=== PATIENT | female | born 1990 | race Caucasian/White ===

== ENCOUNTER → 2018-07-09 16:45 | Outpatient (CLI) | payer BC, SELFPAY ==
[2018-07-09 14:56] VITALS: BMI 29.6
[2018-07-10 12:55] LABS: Chlamydia Trachomatis by PCR Negative (Negative); Neisserai gonorrhoeae by PCR Negative (Negative); Probe Check PASS; Sample Adequacy Control PASS; Specimen Processing Control PASS
[2018-07-16 09:14] LABS: HPV APTIMA, High Risk Negative (Negative)
== END ==
PROVIDERS: Referring Provider Nurse Practitioner Women's Health; Visit Provider Nurse Practitioner Women's Health
DX: Z11.3 Encounter for screening for infections with a predominantly sexual mode of transmission (principal)
CPT/HCPCS: 87491; 87591; 87624; 88175; G0145

== ENCOUNTER → 2019-03-12 15:12 | Outpatient (CLI) | payer OTHER, SELFPAY ==
[2019-03-12 11:11] VITALS: BMI 29.6
== END ==
PROVIDERS: Referring Provider Nurse Practitioner Women's Health; Visit Provider Nurse Practitioner Women's Health
DX: N89.8 Other specified noninflammatory disorders of vagina (principal)
CPT/HCPCS: 87070; 87205

== ENCOUNTER → 2019-04-06 12:42 | Outpatient (CLI) | payer OTHER, SELFPAY ==
[2019-03-12 11:11] VITALS: BMI 29.6
--- NOTE | 2019-04-06 12:46 | US_ITS ---
STUDY: FIRST TRIMESTER OBSTETRICAL ULTRASOUND REASON FOR EXAM: Female, 29 years old VIABILITY LMP: February 05, 2019. TECHNIQUE: Transvaginal TECHNICAL QUALITY: Adequate. PRIOR ULTRASOUND: None. FINDINGS: There is visualization of a single gestational sac in a normal intrauterine position. The mean sac diameter (MSD) measures 2.2 cm, indicating an estimated gestational age (EGA) of 7 weeks, 2 days. The gestational sac shape is within normal limits. There is a visualized yolk sac. The yolk sac measures 4 mm. The placenta is non-visualized. There is visualization of a live embryo. The crown-rump length (CRL) measures 1.9 cm, indicating an estimated gestational age (EGA) of 8 weeks, 4 days. There is demonstrated cardiac activity with a heart rate of 167 bpm. The estimated gestation age (EGA) by LMP is 8 weeks, 4 days. The estimated date of delivery (MIKA) by LMP is November 12, 2019. The estimated gestation age (EGA) by US is 8 weeks, 0 days. The estimated date of delivery (MIKA) by US is November 16, 2019. The uterus is retroverted and measures 8.9 cm x 6.6 cm by 5.5 cm. There is no demonstrated uterine fibroid. The cervix is closed. The right ovary measures 3 cm x 2.6 cm by 1.9 cm. There is no right ovarian cyst. There is no visualized right adnexal mass or complex lesion. The left ovary measures 2.3 cm x 1.6 cm x 1 cm. There is no left ovarian cyst. There is no visualized left adnexal mass or complex lesion. There is no fluid in the cul de sac. US/Transvaginal w/Preg US IMPRESSION: Single live intrauterine gestation with a mean gestational age of 8 weeks. Electronically Signed: Edmar Frausto, at 13:50 EST , Service support ,
== END ==
PROVIDERS: PCP Nurse Practitioner Family; Referring Provider Obstetrics & Gynecology; Visit Provider Obstetrics & Gynecology
DX: O20.0 Threatened abortion (principal); Z3A.00 Weeks of gestation of pregnancy not specified
CPT/HCPCS: 76817

== ENCOUNTER → 2019-04-16 16:15 | Outpatient (CLI) | payer OTHER, SELFPAY ==
[2019-04-16 10:20] VITALS: BMI 29.6
[2019-04-16 16:52] LABS: Protein, Urine (Random) < 6.0 mg/dL (<11.9); Protein:Creat Ratio 118 mg/g CRE (0-200)
[2019-04-16 17:07] LABS: Amphetamine Urine VISTA NEGATIVE (<1000 ng/mL); Barbiturate Urine VISTA NEGATIVE (< 200 ng/mL); Benzodiazepine Urine VISTA NEGATIVE (< 200 ng/mL); Cocaine Urine VISTA NEGATIVE (< 300 ng/mL); Ecstacy Urine VISTA NEGATIVE (< 500 ng/mL); Methadone Urine VISTA NEGATIVE (< 300 ng/mL); PCP Urine VISTA NEGATIVE (< 25 ng/mL); THC Urine VISTA NEGATIVE (< 50 ng/mL); Vista UDS pH Range 5
[2019-04-16 19:42] LABS: Chlamydia Trachomatis by PCR Negative (Negative); Neisserai gonorrhoeae by PCR Negative (Negative); Probe Check PASS; Sample Adequacy Control PASS; Specimen Processing Control PASS
[2019-04-22 13:35] LABS: HPV APTIMA, High Risk Negative (Negative)
== END ==
PROVIDERS: PCP Nurse Practitioner Family; Referring Provider Obstetrics & Gynecology; Visit Provider Obstetrics & Gynecology
DX: Z12.4 Encounter for screening for malignant neoplasm of cervix (principal); Z34.80 Encounter for supervision of other normal pregnancy, unspecified trimester; O09.299 Supervision of pregnancy with other poor reproductive or obstetric history, unspecified trimester; Z3A.00 Weeks of gestation of pregnancy not specified
CPT/HCPCS: 80307; 82570; 84156; 87086; 87088; 87186; 87491; 87591; 87624; 88175; G0145

== ENCOUNTER 2019-04-19 09:18 | Emergency (ER) | payer OTHER, SELFPAY ==
[2019-04-16 10:20] VITALS: BMI 29.6
[2019-04-19 09:19] VITALS: BP 144/84; PULSE 69; RESP 17; TEMP 37.3; O2SAT 100; BMI 33.4
--- NOTE | 2019-04-19 09:30 | US_ITS ---
STUDY: FIRST TRIMESTER OBSTETRICAL ULTRASOUND REASON FOR EXAM: Female, 29 years old BLEEDING LMP: 02/04/2019 TECHNIQUE: Transvaginal TECHNICAL QUALITY: Adequate. PRIOR ULTRASOUND: None. FINDINGS: There is visualization of a single gestational sac in a normal intrauterine position. The mean sac diameter (MSD) measures 3.4 x 4 x 1.6 cm, indicating an estimated gestational age (EGA) of 8 weeks, 2 days. The gestational sac shape is within normal limits. There is no demonstrated yolk sac. The placenta is non-visualized. There is visualization of a live embryo. The crown-rump length (CRL) measures 3.1 cm, indicating an estimated gestational age (EGA) of 10 weeks, 1 days. There is demonstrated cardiac activity with a heart rate of 160 bpm. The estimated gestation age (EGA) by LMP is 10 weeks, 4 days. The estimated date of delivery (MIKA) by LMP is 11/12/2019. The estimated gestation age (EGA) by US is 9 weeks, 2 days. The estimated date of delivery (MIKA) by US is 11/20/2019. The uterus measures 9.1 x 6.6 x 5.9 cm. Fibroid measuring 3.6 x 3.9 x 2.8 cm. The cervix is closed. The right ovary measures 3.2 x 2.5 x 2.0 cm. There is no right ovarian cyst. There is no visualized right adnexal mass or complex lesion. The left ovary measures 3.4 x 1.6 x 1.7 cm. There is no left ovarian cyst. There is no visualized left adnexal mass or complex lesion. There is no fluid in the cul de sac. US/Transvaginal w/Preg US IMPRESSION: Single live early IUP as above. No evidence of complications. Electronically Signed: Chino Rothman DO at 11:26 EST Tel , Service support ,
--- NOTE | 2019-04-19 09:31 | ED.VIS.GEN ---
History of Present Illness Chief Complaint: Vag Bld, Preg Informant: Patient Onset: Today Current Severity: Mild Maximum Severity: Moderate Narrative: Patient presents with vaginal bleeding and mild cramping. She is approximately 10 weeks . She states that 2 to 3 weeks ago she had 11 days of spotting but that had seemed to resolve. Bleeding today is heavier than what she had previously experienced. She is passing some small clots. She is currently G3, P1, Ab1. Past Medical History - Allergies and Home Meds Allergies/Adverse Reactions: Allergies amoxicillin Allergy (Unknown, Verified 04/19/19 09:19) Unknown blueberry Adverse Reaction (Intermediate, Verified 04/19/19 09:19) nauseau/vomiting/diahrea Primary Care Physician: Marshal Munguia, RADIOGRAPHER MAMMOGRAPHER-C [Primary Care Provider] - Doctors: Dr. Roe Prior records reviewed: Yes Past Medical History: None Lives: With Family Smoking Status: Light Smoker (<10/day) Review of Systems General: Denies: Chills, Fever Eyes: Denies: Visual changes - bilaterally ENT: Denies: Bilateral ear pain Cardiovascular: Denies: Chest pain Respiratory: Denies: Dyspnea, Cough Gastrointestinal: Reports: Abdominal pain, Nausea. Denies: Vomiting, Diarrhea Genitourinary: Denies: Dysuria Musculoskeletal: Denies: Extremity Pain Skin: Denies: Rash Neurological: Denies: Headache Allergy: Denies: Uticaria Physical Exam Vital Signs/Narrative: Vital Signs Temp Pulse Resp BP Pulse Ox 04/19/19 09:19 99.1 F 69 17 144/84 H 100 Inital Vital Signs reviewed: Yes General: Well nourished, Well developed Head: Normocephalic ENT: Moist mucous membranes Neck: Supple Cardiovascular: Regular rate, Regular rhythm Respiratory: No distress, CTA bilaterally Abdomen: Soft, Tender - Mild suprapubic tenderness. Extremities: Nontender Skin: Normal color, No rash Neurological: Alert, Oriented x3 Psychological: Normal affect Diagnostic/Tx/Re-eval Impressions Obstetrics Ultrasound 04/19/19 09:30 IMPRESSION: Single live early IUP as above. No evidence of complications. Electronically Signed: Chino Rothman DO at 11:26 EST Tel , Service support , 04/19/19 09:30 Transvaginal w/Preg US [US] Stat Laboratory Results 04/19/19 04/19/19 04/19/19 09:55 09:55 11:07 HCG, Quant [id number] H Urine Color Yellow Urine Clarity Clear Urine pH 7.0 Ur Specific [place] 1.005 Urine Protein Negative Urine Glucose (UA) Normal Urine Ketones Negative Urine Occult Blood 150 H Urine Nitrite Negative Urine Bilirubin Negative Urine Urobilinogen Normal Ur Leukocyte Esterase Negative Urine RBC 10-25 SEEN Urine WBC 0 SEEN Ur Squamous Epith Cells 0 SEEN Urine Bacteria 2+ Urine Mucus 0 SEEN Blood Type O POSITIVE - Medical Decision Making Patient declined anything for pain here. Test results are discussed with her. I will speak with Dr. Roe to arrange close follow-up. ED Disposition - Plan for ED Patient: Disposition: Acute Care Hospital [facility] Diagnosis: Threatened miscarriage Instructions: POSSIBLE MISCARRIAGE (Threatened ) Referrals: Leora Roe MD [STAFF PHYSICIAN] - 1-2 Weeks
[2019-04-19 10:39] LABS: hCG Titer Quant., Serum 53398 mIU/mL (1-3)
[2019-04-19 11:10] LABS: Mucous, Urine 0 SEEN /hpf (<or=2+); Squamous Epithelial Cells - UA 0 SEEN /hpf (5-10); White Blood Cells 0 SEEN /hpf (0-5)
[2019-04-19 11:24] LABS: Color, Urine Yellow (Yellow); Glucose, Dipstick Normal (Normal); Ketone-Dipstick Negative (Negative); Leukocyte Esterase-Dipstick Negative /ul (Negative); Nitrite-Dipstick Negative (Negative); Occult Blood-Urine 150 /ul (Negative); Protein-Dipstick Negative (Negative); Specific Gravity, Urine 1.005 (1.002-1.030); Urine Bilirubin Dipstick Negative (Negative); Urine Clarity Clear (Clear); Urine Urobilinogen Normal (Normal)
[2019-04-19 11:31] LABS: Bacteria 2+ /hpf (None Seen); Red Blood Cells-Urine 10-25 SEEN /hpf (0-5)
[2019-04-19 12:03] VITALS: BP 125/83; PULSE 77; RESP 18; O2SAT 100
== END 2019-04-19 12:03 | disposition short-term general hospital (02) ==
PROVIDERS: Emergency Provider Emergency Medicine; PCP Nurse Practitioner Family; Referring Provider Nurse Practitioner Family
DX: O20.0 Threatened abortion (principal); Z3A.10 10 weeks gestation of pregnancy; O99.331 Smoking (tobacco) complicating pregnancy, first trimester; F17.200 Nicotine dependence, unspecified, uncomplicated
CPT/HCPCS: 76817; 81001; 84702; 86900; 86901; 99282; A4216

== ENCOUNTER → 2019-05-08 10:10 | Outpatient (CLI) | payer OTHER, SELFPAY ==
[2019-04-23 14:33] VITALS: BMI 33.4
[2019-05-08 10:56] LABS: Absolute Lymphocyte Count 1.96 X10^3/uL (0.83-4.51); Basophil# 0.04 X10^3/uL; Basophil% 0.4 % (0-1); Eosinophil# 0.15 X10^3/uL; Eosinophils% 1.6 % (0-5); Hematocrit 37.7 % (37-47); Hemoglobin 12.9 g/dL (12.0-15.0); Lymphocyte # 1.96 X10^3/ul (4.0); Lymphocyte % 20.3 % (19-41); Mean Corp Hgb Conc 34.2 g/dL (32-36); Mean Corpuscular Volume 87.7 fL (81-99); Mean Platelet Vol. 8.1 fl (6.2-12.0); Monocyte# 0.51 X10^3/uL; Monocyte% 5.3 % (0-10); NRBC Flagged by Analyzer 0 % (0-5); Neutrophil # 6.95 X10^3/uL (2.7-7.7); Neutrophil % 72.1 % (47-70); Platelet Count 295 K/mm3 (150-450); RBC Distribution Width CV 12.2 % (11.6-14.6); White Blood Count 9.6 K/mm3 (4.4-11.0)
[2019-05-08 11:21] LABS: ALB/GLOB Ratio 0.8 RATIO (0.9-2.4); AST(SGOT) 11 U/L (15-37); Alanine Aminotransfer ALT/SGPT 20 U/L (13-56); Albumin, Serum 3.3 g/dL (3.2-5.0); Alkaline Phosphatase 55 U/L (45-117); Anion Gap 6 (5-15); BUN 9 mg/dL (7-18); BUN/Creat Ratio 13.5 RATIO (10-20); Calcium,Total 9.4 mg/dL (8.5-10.1); Chloride 108 mmol/L (98-107); Creatinine, Serum 0.66 mg/dL (0.55-1.02); EST Glomerular Filtration Rate 110 mL/min (>60); Est Glom Filt Rate - Afr Amer 133 mL/min (>60); Globulin 3.9 g/dL (2.2-4.2); Glucose 103 mg/dL (74-106); Glucose Challenge Gest 1H 50g 103 mg/dL (70-140); Potassium 3.7 mmol/L (3.5-5.1); Protein, Total 7.2 g/dL (6.4-8.2); Sodium Level 139 mmol/L (136-145)
[2019-05-08 12:11] LABS: HIV - WCH Non-Reactive (Nonreactive); Hepatitis B Surface Antigen Non-Reactive (Nonreactive); Hepatitis C Antibody Non-Reactive (Nonreactive); Rubella IgG 126.4 IU/mL
[2019-05-14 01:05] LABS: Rapid Plasmin Reagin (RPR) NONREACTIVE (NONREACTIVE)
== END ==
PROVIDERS: PCP Nurse Practitioner Family; Visit Provider Obstetrics & Gynecology
DX: O09.299 Supervision of pregnancy with other poor reproductive or obstetric history, unspecified trimester (principal); Z3A.00 Weeks of gestation of pregnancy not specified
CPT/HCPCS: 36415; 80053; 82950; 85025; 86592; 86703; 86762; 86803; 86850; 86900; 86901; 87340

== ENCOUNTER → 2019-08-07 09:41 | Outpatient (CLI) | payer OTHER, SELFPAY ==
[2019-08-07 09:15] VITALS: BMI 33.4
[2019-08-07 10:52] LABS: Absolute Lymphocyte Count 1.65 X10^3/uL (0.83-4.51); Absolute Neutrophil Count 9.6 X10^3/uL (2.0-7.7); Basophil# 0.03 X10^3/uL; Basophil% 0.2 % (0-1); Eosinophil# 0.17 X10^3/uL; Eosinophils% 1.4 % (0-5); Hematocrit 35.3 % (37-47); Hemoglobin 11.6 g/dL (12.0-15.0); Lymphocyte # 1.65 X10^3/ul (4.0); Lymphocyte % 13.7 % (19-41); Mean Corp Hgb Conc 32.9 g/dL (32-36); Mean Corpuscular Hgb 29.7 pg (27.0-32.0); Mean Corpuscular Volume 90.5 fL (81-99); Mean Platelet Vol. 8.4 fl (6.2-12.0); Monocyte# 0.49 X10^3/uL; Monocyte% 4.1 % (0-10); NRBC Flagged by Analyzer 0 % (0-5); Neutrophil # 9.64 X10^3/uL (2.7-7.7); Neutrophil % 79.9 % (47-70); Platelet Count 296 K/mm3 (150-450); RBC Distribution Width CV 13.5 % (11.6-14.6); White Blood Count 12.1 K/mm3 (4.4-11.0)
[2019-08-07 11:10] LABS: Glucose Challenge Gest 1H 50g 168 mg/dL (70-140)
== END ==
PROVIDERS: Referring Provider Obstetrics & Gynecology; Visit Provider Obstetrics & Gynecology
DX: Z34.80 Encounter for supervision of other normal pregnancy, unspecified trimester (principal)
CPT/HCPCS: 36415; 82950; 85025

== ENCOUNTER → 2019-08-13 08:27 | Outpatient (CLI) | payer OTHER, SELFPAY ==
[2019-08-07 09:15] VITALS: BMI 33.4
[2019-08-13 09:16] LABS: Glucose GTT-Gestation. Fasting 91 mg/dL (<105)
[2019-08-13 10:21] LABS: Glucose GTT-Gestational 1 Hr 142 mg/dL (<190)
[2019-08-13 12:06] LABS: Glucose GTT-Gestational 2 Hr 123 mg/dL (<165)
[2019-08-13 12:11] LABS: Glucose GTT-Gestational 3 Hr 98 L (<145)
== END ==
PROVIDERS: Referring Provider Obstetrics & Gynecology; Visit Provider Obstetrics & Gynecology
DX: O99.810 Abnormal glucose complicating pregnancy (principal); Z3A.00 Weeks of gestation of pregnancy not specified
CPT/HCPCS: 36415; 82951; 82952

== ENCOUNTER 2019-09-30 11:40 | Outpatient (CLI) | payer OTHER, SELFPAY ==
[2019-09-30] VITALS (12 sets, daily range): BP systolic 125–138; BP diastolic 69–80; PULSE 64–87; RESP 18; TEMP 37.1–37.3; O2SAT 97–99; BMI 41.5; BMI 42.0
[2019-09-30 12:34] LABS: Hematocrit 31.6 % (37-47); Hemoglobin 10.6 g/dL (12.0-15.0); Mean Corp Hgb Conc 33.5 g/dL (32-36); Mean Corpuscular Hgb 30.8 pg (27.0-32.0); Mean Corpuscular Volume 91.9 fL (81-99); Mean Platelet Vol. 8.5 fl (6.2-12.0); Platelet Count 248 K/mm3 (150-450); RBC Distribution Width CV 14.2 % (11.6-14.6); RBC Distribution Width SD 46.7 fl (35.1-43.9); Red Blood Count 3.44 M/mm3 (4.2-5.4); White Blood Count 10.7 K/mm3 (4.4-11.0)
[2019-09-30 12:41] LABS: Prothrombin Time (Protime)PT. 12.5 SECONDS (11.7-14.9)
[2019-09-30 12:42] LABS: Partial Thromboplast Time 25.7 Seconds (24.1-36.2)
[2019-09-30 12:46] LABS: AST(SGOT) 22 U/L (15-37); Alanine Aminotransfer ALT/SGPT 27 U/L (13-56); Creatinine, Serum 0.61 mg/dL (0.55-1.02); EST Glomerular Filtration Rate 121 mL/min (>60); Est Glom Filt Rate - Afr Amer 147 mL/min (>60); Estimated Creatinine Clearance 110.54 ml/min; Uric Acid 5.4 mg/dL (2.6-6.0)
[2019-09-30 13:08] LABS: Protein, Urine (Random) < 6.0 mg/dL (<11.9)
--- NOTE | 2019-09-30 19:16 | OB.TRI.PN ---
Progress Notes Date of Service: 09/30/19 Progress Note: Patient presents for triage evaluation secondary to elevated bp in office FHT: 140 Moderate variability reactive no decelerations category I tracing [place]: Irritability contractions Assessment and plan: 29-year-old with a history of preeclampsia in previous presents with initial elevated blood pressures in the office. Repeat blood pressures in triage within normal limits and labs within normal limits save for mildly elevated uric acid negative urine for protein. Reactive NST, reassuring maternal and status patient discharged to home to follow-up as scheduled reviewed preeclampsia precautions. See problem list details for additional plan information. Laboratory Studies: Laboratory Tests 09/30/19 09/30/19 09/30/19 Range/Units 12:40 12:20 12:20 WBC (4.4-11.0) K/mm3 RBC (4.2-5.4) M/mm3 Hgb (12.0-15.0) g/dL Hct (37-47) % MCV (81-99) fL MCH (27.0-32.0) pg MCHC (32-36) g/dL RDW Std Deviation (35.1-43.9) fl RDW Coeff of Suri (11.6-14.6) % Plt Count (150-450) K/mm3 MPV (6.2-12.0) fl PT 12.5 (11.7-14.9) SECONDS INR 1.0 APTT 25.7 (24.1-36.2) Seconds Creatinine 0.61 (0.55-1.02) mg/dL Estim Creat Clear Calc 110.54 ml/min Est GFR (MDRD) Af Amer 147 (>60) mL/min Est GFR (MDRD) Non-Af 121 (>60) mL/min Uric Acid 5.4 (2.6-6.0) mg/dL AST 22 (15-37) U/L ALT 27 (13-56) U/L U Random Total Protein < 6.0 (<11.9) mg/dL Urine Creatinine 14.50 (NO RANGE EST.) mg/dL Protein/Creatinin Ratio TNP 09/30/19 Range/Units 12:20 WBC 10.7 (4.4-11.0) K/mm3 RBC 3.44 L (4.2-5.4) M/mm3 Hgb 10.6 L (12.0-15.0) g/dL Hct 31.6 L (37-47) % MCV 91.9 (81-99) fL MCH 30.8 (27.0-32.0) pg MCHC 33.5 (32-36) g/dL RDW Std Deviation 46.7 H (35.1-43.9) fl RDW Coeff of Suri 14.2 (11.6-14.6) % Plt Count 248 (150-450) K/mm3 MPV 8.5 (6.2-12.0) fl PT (11.7-14.9) SECONDS INR APTT (24.1-36.2) Seconds Creatinine (0.55-1.02) mg/dL Estim Creat Clear Calc ml/min Est GFR (MDRD) Af Amer (>60) mL/min Est GFR (MDRD) Non-Af (>60) mL/min Uric Acid (2.6-6.0) mg/dL AST (15-37) U/L ALT (13-56) U/L U Random Total Protein (<11.9) mg/dL Urine Creatinine (NO RANGE EST.) mg/dL Protein/Creatinin Ratio - Problem List (1) Elevated blood pressure affecting in third trimester, antepartum Status: Acute Comment: seen 09/29 in triage, mildly elevated uric acid, neg ur prtn. repeat bps all WNL. reviewed preeclampsia precautions Multi Select Codes - Urinary/Genital Urinary/Genital CPT Codes: 83022-58 non-stress test Interp
== END 2019-09-30 14:15 | disposition home or self-care (01) ==
LOC: WPOUT 11:53 → OBT 11:54
PROVIDERS: Referring Provider Obstetrics & Gynecology; Visit Provider Obstetrics & Gynecology
DX: O26.893 Other specified pregnancy related conditions, third trimester (principal); R03.0 Elevated blood-pressure reading, without diagnosis of hypertension; Z3A.00 Weeks of gestation of pregnancy not specified
CPT/HCPCS: 36415; 59025; 59050; 82565; 82570; 84156; 84450; 84460; 84550; 85027; 85610; 85730; 99218; G0378

== ENCOUNTER 2019-10-16 09:15 | Outpatient (CLI) | payer OTHER, SELFPAY ==
[2019-10-16] VITALS (11 sets, daily range): BP systolic 135–155; BP diastolic 95–100; PULSE 70–88; O2SAT 97–98; BMI 42.0; BMI 43.4
[2019-10-16 10:00] LABS: Protein, Urine (Random) 86.1 mg/dL (<11.9); Protein:Creat Ratio 300 mg/g CRE (0-200)
[2019-10-16 10:08] LABS: Hematocrit 33.6 % (37-47); Hemoglobin 11.2 g/dL (12.0-15.0); Mean Corp Hgb Conc 33.3 g/dL (32-36); Mean Corpuscular Hgb 30.3 pg (27.0-32.0); Mean Corpuscular Volume 90.8 fL (81-99); Mean Platelet Vol. 8.7 fl (6.2-12.0); Platelet Count 263 K/mm3 (150-450); RBC Distribution Width CV 13.7 % (11.6-14.6); RBC Distribution Width SD 45.1 fl (35.1-43.9); White Blood Count 10.4 K/mm3 (4.4-11.0)
[2019-10-16 10:20] LABS: AST(SGOT) 22 U/L (15-37); Alanine Aminotransfer ALT/SGPT 25 U/L (13-56); Creatinine, Serum 0.68 mg/dL (0.55-1.02); EST Glomerular Filtration Rate 107 mL/min (>60); Est Glom Filt Rate - Afr Amer 129 mL/min (>60); Estimated Creatinine Clearance 99.16 ml/min; Uric Acid 6.4 mg/dL (2.6-6.0)
[2019-10-16 10:29] LABS: Prothrombin Time (Protime)PT. 12.4 SECONDS (11.7-14.9)
[2019-10-16 10:30] LABS: Partial Thromboplast Time 26.3 Seconds (24.1-36.2)
--- NOTE | 2019-10-16 10:59 | US_ITS ---
STUDY: SECOND AND THIRD TRIMESTER OBSTETRICAL ULTRASOUND REASON FOR EXAM: Female, 29 years old HTN-presclampsia LMP: 02/04/2019. TECHNIQUE: Transabdominal TECHNICAL QUALITY: Adequate. PRIOR ULTRASOUND: Comparison is made with prior study dated 04/19/2019. FINDINGS: There is a single intrauterine fetus. The fetus is in a cephalic presentation. There is demonstrated cardiac activity with a heart rate of 160 bpm. There is a normal amniotic fluid volume. The largest amniotic fluid pocket measures 4.3 cm. The amniotic fluid index (GIORGIO) is 9.5 cm. The placenta is posterior in location and is not low lying. There are Grade 2 placental changes. The cervix was not measured due to the head position. The adnexal regions are not visualized. BIOMETRY: BPD: 8.7 cm: 35 weeks, 1 days HC: 31.8 cm: 35 weeks, 6 days AC: 31.5 cm: 35 weeks, 3 days FL: 7 cm: 35 weeks, 5 days CI: 81% FL/BPD: 80% FL/HC: FL/AC: 22% HC/AC: 1.01 age by current US: 35 weeks, 4 days. MIKA by current US: 11/16/2019. Estimated weight: 2691 grams, +/- 393 grams, 34 %. age by prior US: 35 weeks, 0 days. MIKA by prior US: 11/20/2019. Age by LMP: 36 weeks, 1 days. MIKA by LMP: 11/12/2019. US/OB Limited With Biometrics IMPRESSION: Single I think uterine gestation with a mean gestational age of 35 weeks. The measurements obtained today fall within the normal expected range. Electronically Signed: Edmar Frausto, at 12:47 EDT , Service support ,
[2019-10-16] MEDS: Acetaminophen 500 MG Tablet 1000 MG PO (11:18)
[2019-10-16] MEDS: Betamethasone/Betamethasone 30 MG/5 ML Vial 12 MG IM (12:06)
[2019-10-16 13:56] LABS: Group B Strep DNA By PCR Negative (Negative); Internal Control PASS; Probe Check PASS; Specimen Processing Control PASS
--- NOTE | 2019-10-18 05:08 | OB.TRI.PN ---
Progress Notes Date of Service: 10/09/19 Progress Note: Patient presents for triage evaluation secondary to elevated blood pressure in the office. Patient has a history of preeclampsia and currently she had some trauma to her right eyes who is having a headache behind that and some visual changes due to that. She complains of increased edema and blood pressures were in the 150s over 90s in the office and continued to be 140s to 150s over 90s in triage. FHT: 140 moderate variability reactive no decelerations category I tracing [place]: No contractions Assessment and plan: 29-year-old at 36 weeks with preeclampsia with mild features. Serial blood pressure show mildly elevated blood pressures and labs show proteinuria and mildly elevated uric acid but normal platelets and liver enzymes. Reviewed preeclampsia precautions, growth scan performed and normal and reassuring. Celestone x1 given reactive NST, reassuring maternal and status patient discharged to home to follow-up tomorrow in triage for additional Celestone dose and plan visit in the office the beginning of next week and delivery at 37 weeks.. See problem list details for additional plan information. Laboratory Studies: Laboratory Tests 10/16/19 10/16/19 10/16/19 Range/Units 12:40 09:57 09:57 WBC (4.4-11.0) K/mm3 RBC (4.2-5.4) M/mm3 Hgb (12.0-15.0) g/dL Hct (37-47) % MCV (81-99) fL MCH (27.0-32.0) pg MCHC (32-36) g/dL RDW Std Deviation (35.1-43.9) fl RDW Coeff of Suri (11.6-14.6) % Plt Count (150-450) K/mm3 MPV (6.2-12.0) fl PT 12.4 (11.7-14.9) SECONDS INR 1.0 APTT 26.3 (24.1-36.2) Seconds Creatinine 0.68 (0.55-1.02) mg/dL Estim Creat Clear Calc 99.16 ml/min Est GFR (MDRD) Af Amer 129 (>60) mL/min Est GFR (MDRD) Non-Af 107 (>60) mL/min Uric Acid 6.4 H (2.6-6.0) mg/dL AST 22 (15-37) U/L ALT 25 (13-56) U/L U Random Total Protein (<11.9) mg/dL Urine Creatinine (NO RANGE EST.) mg/dL Protein/Creatinin Ratio (0-200) mg/g CRE Group B Strep DNA Negative (Negative) Specimen Comment Not Reportable 10/16/19 10/16/19 Range/Units 09:57 09:16 WBC 10.4 (4.4-11.0) K/mm3 RBC 3.70 L (4.2-5.4) M/mm3 Hgb 11.2 L (12.0-15.0) g/dL Hct 33.6 L (37-47) % MCV 90.8 (81-99) fL MCH 30.3 (27.0-32.0) pg MCHC 33.3 (32-36) g/dL RDW Std Deviation 45.1 H (35.1-43.9) fl RDW Coeff of Suri 13.7 (11.6-14.6) % Plt Count 263 (150-450) K/mm3 MPV 8.7 (6.2-12.0) fl PT (11.7-14.9) SECONDS INR APTT (24.1-36.2) Seconds Creatinine (0.55-1.02) mg/dL Estim Creat Clear Calc ml/min Est GFR (MDRD) Af Amer (>60) mL/min Est GFR (MDRD) Non-Af (>60) mL/min Uric Acid (2.6-6.0) mg/dL AST (15-37) U/L ALT (13-56) U/L U Random Total Protein 86.1 H (<11.9) mg/dL Urine Creatinine 287.00 (NO RANGE EST.) mg/dL Protein/Creatinin Ratio 300 H (0-200) mg/g CRE Group B Strep DNA (Negative) Specimen Comment - Problem List (1) Abnormal glucose affecting Status: Acute Comment: 3hr GTT-normal (2) History of pre-eclampsia Status: Acute Comment: nl baseline labs, baby asa at 14 weeks (3) Pap smear abnormality of cervix with ASCUS favoring benign Status: Acute Comment: Repeat pap 06/2019 (4) Pre-eclampsia, mild Status: Acute Comment: nl growth US and plan nst/visit in office saturday10/18/20 with iol at 37 weeks. bmz 10/15 and 10/16. labs 10/15. reviewed preeclampsia precautions and plan home bp monitoring. (5) Status: Acute Qualifiers: Comment: Declined genetic, carrier and NTD screening. Normal anatomy 06/25/19 (6) Supervision of other normal Status: Acute Comment: PRR MIKA 11/12/2019 girl (surprise name) SHAMA Esther Lloyd (his first) Multi Select Codes - Urinary/Genital Urinary/Genital CPT Codes: 80248-67 non-stress test Interp
== END 2019-10-16 14:00 | disposition home or self-care (01) ==
LOC: LABSPEC 09:15 → WPOUT 09:33 → WP 09:36
PROVIDERS: Referring Provider Obstetrics & Gynecology; Visit Provider Obstetrics & Gynecology
DX: O14.03 Mild to moderate pre-eclampsia, third trimester (principal); Z3A.36 36 weeks gestation of pregnancy; O99.810 Abnormal glucose complicating pregnancy
CPT/HCPCS: 36415; 59025; 59050; 76816; 82565; 82570; 84156; 84450; 84460; 84550; 85027; 85610; 85730; 87081; 87635; 87653; 96372; 99218; G0378; J0702; U0003

== ENCOUNTER 2019-10-17 12:00 | Outpatient (CLI) | payer OTHER, SELFPAY ==
[2019-10-16 10:15] VITALS: BMI 43.4
[2019-10-17] MEDS: Betamethasone/Betamethasone 30 MG/5 ML Vial 12 MG IM (13:46)
[2019-10-17 13:50] VITALS: BMI 43.4
[2019-10-17 13:55] VITALS: RESP 18
--- NOTE | 2019-10-17 14:06 | NURSING ---
1238: [facility] to assume care of this patient for scheduled celestone; informed this RN that awaiting pharmacy to verify celestone. 1245: Pharmacy called this RN regarding celestone verification. 1255: Pt 36.2 weeks, pt here for 2nd celestone injection only. Dr. Clement on unit. Informed that pt here for 2nd celestone. Order received to obtain BP and give celestone; if BP <160/<110 and asymptomatic, pt ok to be discharged home. 1300: This RN greeted pt. Pt sitting in chair in room and resting. BP 155/96 left upper arm, pulse 90, pulse ox 98%, 18 RR easy and unlabored, temp 99.9 temporal. Pt denies DORSEY, vision changes, N/V, RUQ epigastric pain. This RN performed assessment. Lungs clear and equal all lobes, unlabored; reflexes bilaterally biceps +1, patellar bilaterally +1; pedal edema bilaterally noted +1 pitting; No clonus illicited. Pt denies pain or cramping/contractions. Informed pt awaiting on celestone. Pt denies further needs. 1330: Pharmacy called for celestone verification. 1345: Pt resting in chair in room. Celestone explained and given. 1355: Discharge instructions and preeclampsia signs pamphlet explained and given with kick count sheet. Pt verbalized understanding. Pt discharged home with discharge papers via ambulatory in no apparent distress.
--- NOTE | 2019-10-18 05:12 | OB.TRI.PN ---
Progress Notes Date of Service: 10/17/19 Progress Note: Celestone dose #2 given secondary to prematurity and mild preeclampsia - Problem List (1) Pre-eclampsia, mild Status: Acute Comment: nl growth US and plan nst/visit in office saturday10/18/20 with iol at 37 weeks. bmz 10/15 and 10/16. labs 10/15. reviewed preeclampsia precautions and plan home bp monitoring. Multi Select Codes - Urinary/Genital Urinary/Genital CPT Codes: No Charge
== END 2019-10-17 13:55 | disposition home or self-care (01) ==
LOC: WPOUT 12:02 → WP 12:02
PROVIDERS: Visit Provider Obstetrics & Gynecology
DX: O14.03 Mild to moderate pre-eclampsia, third trimester (principal); Z3A.37 37 weeks gestation of pregnancy
CPT/HCPCS: 96372; 99218; G0378; J0702

== ENCOUNTER → 2019-10-19 11:26 | Outpatient (CLI) | payer OTHER, SELFPAY ==
[2019-10-19 11:03] VITALS: BMI 43.4
[2019-10-19 11:54] LABS: Protein, Urine (Random) 52.2 mg/dL (<11.9); Protein:Creat Ratio 411 mg/g CRE (0-200)
[2019-10-19 12:19] LABS: Absolute Lymphocyte Count 2.67 X10^3/uL (0.83-4.51); Basophil# 0.04 X10^3/uL; Basophil% 0.3 % (0-1); Eosinophil# 0.05 X10^3/uL; Eosinophils% 0.4 % (0-5); Hematocrit 30.3 % (37-47); Lymphocyte # 2.67 X10^3/ul (4.0); Lymphocyte % 19.5 % (19-41); Mean Corpuscular Hgb 30.2 pg (27.0-32.0); Mean Corpuscular Volume 91.5 fL (81-99); Mean Platelet Vol. 8.7 fl (6.2-12.0); Monocyte# 1.49 X10^3/uL; Monocyte% 10.9 % (0-10); NRBC Flagged by Analyzer 0.1 % (0-5); Neutrophil # 9.01 X10^3/uL (2.7-7.7); Platelet Count 260 K/mm3 (150-450); RBC Distribution Width CV 13.7 % (11.6-14.6); RBC Distribution Width SD 45.4 fl (35.1-43.9); Red Blood Count 3.31 M/mm3 (4.2-5.4); White Blood Count 13.7 K/mm3 (4.4-11.0)
[2019-10-19 12:43] LABS: ALB/GLOB Ratio 0.7 RATIO (0.9-2.4); AST(SGOT) 22 U/L (15-37); Alanine Aminotransfer ALT/SGPT 26 U/L (13-56); Albumin, Serum 2.5 g/dL (3.2-5.0); Alkaline Phosphatase 185 U/L (45-117); Anion Gap 5 (5-15); BUN 15 mg/dL (7-18); BUN/Creat Ratio 20.5 RATIO (10-20); Calcium,Total 8.5 mg/dL (8.5-10.1); Chloride 111 mmol/L (98-107); Creatinine, Serum 0.73 mg/dL (0.55-1.02); EST Glomerular Filtration Rate 98 mL/min (>60); Est Glom Filt Rate - Afr Amer 119 mL/min (>60); Globulin 3.6 g/dL (2.2-4.2); Glucose 73 mg/dL (74-106); Potassium 3.9 mmol/L (3.5-5.1); Protein, Total 6.1 g/dL (6.4-8.2); Sodium Level 140 mmol/L (136-145)
== END ==
PROVIDERS: Referring Provider Obstetrics & Gynecology; Visit Provider Obstetrics & Gynecology
DX: Z87.59 Personal history of other complications of pregnancy, childbirth and the puerperium (principal)
CPT/HCPCS: 36415; 80053; 82570; 84156; 85025

== ENCOUNTER 2019-10-22 07:20 | Inpatient (IN) | payer OTHER, SELFPAY ==
[2019-09-30 12:03] VITALS: BMI 42.0
[2019-10-16 19:38] LABS: Probe Check PASS; Specimen Processing Control PASS
[2019-10-19 11:03] VITALS: BMI 43.4
[2019-10-22] VITALS (103 sets, daily range): BP systolic 130–177; BP diastolic 83–112; PULSE 74–96; RESP 14–18; TEMP 36.1–37.6; O2SAT 95–100; BMI 43.9
[2019-10-22 08:08] LABS: Absolute Neutrophil Count 8.4 X10^3/uL (2.0-7.7); Basophil# 0.04 X10^3/uL; Basophil% 0.3 % (0-1); Eosinophil# 0.22 X10^3/uL; Eosinophils% 1.9 % (0-5); Hemoglobin 10.5 g/dL (12.0-15.0); Lymphocyte % 18.8 % (19-41); Mean Corp Hgb Conc 33.9 g/dL (32-36); Mean Corpuscular Hgb 30.3 pg (27.0-32.0); Mean Corpuscular Volume 89.6 fL (81-99); Monocyte# 0.71 X10^3/uL; Monocyte% 6.1 % (0-10); NRBC Flagged by Analyzer 0 % (0-5); Neutrophil # 8.39 X10^3/uL (2.7-7.7); Neutrophil % 71.6 % (47-70); Platelet Count 263 K/mm3 (150-450); RBC Distribution Width CV 13.6 % (11.6-14.6); RBC Distribution Width SD 44.4 fl (35.1-43.9); Red Blood Count 3.46 M/mm3 (4.2-5.4); White Blood Count 11.7 K/mm3 (4.4-11.0)
[2019-10-22] MEDS: Lactated Ringers 1,000 ML 25 ML IV (08:19)
[2019-10-22] MEDS: Magnesium Sulfate 4gm/100mL 4 GM/100 ML IV.SOLN. IV (08:21)
[2019-10-22] MEDS: Labetalol (Prefilled) 20 MG/4 ML IV ×2 (08:22→11:48)
[2019-10-22] MEDS: Magnesium Sulfate 4gm/100mL 2 GM/50 ML IV.SOLN. IV (08:43)
[2019-10-22] MEDS: Magnesium Sulfate 20 GM/500 ML BAG IV ×2 (09:03→19:24)
[2019-10-22] MEDS: Labetalol 100 MG Tablet PO ×2 (09:13→13:25)
[2019-10-22] MEDS: miSOPROStol 25 MCG TABLET VAGINAL (09:35)
[2019-10-22] MEDS: Acetaminophen 325 MG Tablet PO ×2 (11:42→22:34)
[2019-10-22] MEDS: 0.9% Normal Saline Single 100 ML IV.SOLN. IY (13:02)
--- NOTE | 2019-10-22 13:14 | HP.PCM_ITS ---
- Problem List (1) Abnormal glucose affecting Status: Acute Comment: 3hr GTT-normal (2) History of pre-eclampsia Status: Acute Comment: nl baseline labs, baby asa at 14 weeks (3) Pap smear abnormality of cervix with ASCUS favoring benign Status: Acute Comment: Repeat pap 06/2019 (4) Pre-eclampsia, mild Status: Acute Comment: nl growth US labs stable 10/18, plan iol at 37 weeks. bmz 10/15 and 10/16. labs 10/15. reviewed preeclampsia precautions and plan home bp monitoring. (5) Status: Acute Qualifiers: Comment: Declined genetic, carrier and NTD screening. 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 Driver Required: No Is patient in pain?: No Allergies amoxicillin Allergy (Unknown, Verified 10/19/19 11:02) Rash blueberry Adverse Reaction (Intermediate, Verified 10/19/19 11:02) Nausea/Vom/Diarrhea Medications multivitamin no.47-iron fum 27 mg-folate no.1 1 mg-dha 300 mg capsule 1 cap PO DAILY 04/16/19 [History Confirmed 10/19/19] aspirin 81 mg tablet,delayed release 81 mg PO DAILY 06/12/19 [History Confirmed 10/19/19] Calcium Carbonate [Calcium] 500 mg PO DAILY 09/30/19 [History Confirmed 10/19/19] blood pressure test kit-large See Rx Instructions .ROUTE .MEDSUPPLY #1 ea 10/16/19 [Rx Confirmed 10/19/19] Last Menstral Period: 07/02/18 Zika: Zika virus screening: Negative : No PFSH PFSH Medical History History of pre-eclampsia (Acute) Surgical History cryo surgery (Resolved) Family History Grandfather Hypertension Grandmother Ovarian cancer Uterine cancer Skin cancer Colon cancer Cancer of kidney Mother Diabetes Social History (Updated 10/20/19 @ 02:[address] 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 history of recent travel: No sexually active: No Smoking Status: Former smoker second hand exposure: Yes alcohol intake: current alcohol intake frequency: holidays/special occasions only substance use type: does not use well-balanced diet: daily or most days caffeine: Yes what type of physical activity do you participate in: walking, weight training seatbelt use: always do you feel safe at home: Yes additional social history: engaged to [employer] Pregancy History 1 Elective abortions Hx Para 1 Spontaneous abortions Hx # Term Pregnancies Ectopic pregnancies Hx # Pregnancies Multiple births # of living children 1 Past Pregnancies Del. Date Name GA/Weeks Outcome Route Bth Weight Gen Labor Lgth Anesthesia Del Locatn Provider FOB 12/06/08 Esther 40 live - full term 7lbs 4oz Female epidural [facility] Dr. Polanco Delivery Date: 12/06/08 On 04/16/19 @ 09:12 Edita Rollins pre-e, GHTN HPI NST/BP check: Details: PETER NATH is a 29 year old who presents for routine OB visit. OB Visit MIKA Calculator Estimated Delivery Date Method Current WG Current Estimate 11/12/19 LMP (Certain) 36w 5d Other Estimates 11/20/19 Ultrasound #1 35w 4d Expected Delivery Route/Plan Labor Preferences- labor support person: Lloyd pain management options preferred: minimal intervention, essential oils cut cord/dad catch: yes : yes PP control planned: condoms discussed possible routes of delivery and associated risks: discussed possible delivery modalities and possible indications for each including R/B/A of , VAVD, and CS. questions answered. special requests: none Specific Issue/Plans flu vaccine: declined tdap vaccine: declined rhogam: na LARC form signed: yes movement and labor precautions reviewed. Problem list reviewed and updated with the most current plan of care details and appropriate orders placed. Relevant counseling for the gestational age provided. Continue routine care and follow up unless otherwise noted in visit notes/problem list details Initial Weight: 194 lb Date EGA Weight BP Urine Prot Glucose FHR FuHt Pres Dilation Effaced St Visit Note 04/23/19 11w 0d 195 lb 6 oz (+1 lb 6 oz) 122/78 180 -ED follow up for bleeding 04/19. No bleeding since 04/20. Has US WNL at that time. Brief US with live IUP 05/15/19 14w 1d 196 lb (+2 lb) 126/80 Negative Negative 150 SM- no vb cramping, start baby ASA 06/12/19 18w 1d 203 lb (+9 lb) 128/72 Negative Negative 145 SM- no vb lof cramping 08/07/19 26w 1d 214 lb (+20 lb) 118/78 Negative Negative 140 26 SM- no vb lof good fm no regular ctx. lost grandfather today, support given. cbc gct declines tdap 09/04/19 30w 1d 220 lb (+26 lb) 102/80 Negative Negative 140 31 Sm- no vb lof good fm o regular ctx larc signed 09/16/19 31w 6d 229 lb 4 oz (+35 lb 4 oz) 126/84 Negative Negative 140 32 SM- no vb lof good fm no regular ctx. 09/30/19 33w 6d 238 lb (+44 lb) 126/90 Negative Negative 140 34 SM- co groin pain, no vb lof good fm no regular ctx 10/16/19 36w 1d 150/104 1+ Negative to l and d for evaluation due to elevated bp 10/19/19 36w 4d 249 lb (+55 lb) 1 20 -4 plan IOL 37 weeks, contin ue home bps, repeat labs today ACOG First Trimester First Trimester: Second Trimester Second Trimester: Signs and Symptoms of Labor, Selecting a care provider, Reproductive Life Planning, Care Planning, Tobacco Cessation, Depression/Anxiety and Intimate Partner Violence Third Trimester Third Trimester: Pain Management Plans, Labor support person(s), Immediate Larc, Movement Monitoring and Feeding Yes ; discussed Trial of Labor after Counseling or discussed Circumcision preference Diagnostics Diagnostics Diagnostics Gest Glucose Tolerance MG/DL 08/13/19 Glucose 1 Hr 50 gm 168 mg/dL (70-140) H 08/07/19 Group B Strep DNA Negative (Negative) 10/16/19 Hgb 10.0 g/dL (12.0-15.0) L 10/19/19 Hct 30.3 % (37-47) L 10/19/19 Details: HIV: Urine Culture: Sequential Screen: NIPT Screen: ROS Const Reports system reviewed and no additional complaints, except as docu Card Reports system reviewed and no additional complaints, except as docu Resp Reports system reviewed and no additional complaints, except as docu GI Reports system reviewed and no additional complaints, except as docu, Reports nausea Reports system reviewed and no additional complaints, except as docu Musc Reports system reviewed and no additional complaints, except as docu Exam Const General: cooperative, healthy appearing, comfortable, anxious HENMT Head: normal to inspection Nose: external nose normal Face and sinus: normal facial exam Neck Neck: normal visual inspection, full ROM, no lymphadenopathy Thyroid: thyroid normal Chest Chest palpation & inspection: normal inspection of the chest Resp Effort & Inspection: normal respiratory effort GI Inspection: normal to inspection Palpation: soft, other (gravid uterus) Other: infant vertex and appropriate size for gestational age Other: Cervical Exam: Extrem General: pedal edema Office Procedures OB NST Non-Stress Test Indications for Monitoring: Yes hypertension Heart Rate Baseline: 130 Heart Rate Variability: moderate Movement: Present Heart Rate Accelerations: Present Decelerations: Absent Impression: Yes Reactive Non-Stress Test Category 1 Assessment & Plan Problems 1. Pap smear abnormality of cervix with ASCUS favoring benign R87.610 2. 36 weeks gestation of Z3A.36 3. History of pre-eclampsia Z87.59 4. Supervision of other normal Z34.80 5. Abnormal glucose affecting O99.810 6. Pre-eclampsia, with severe preeclampsia O14.00 Patient presents IOL, plan management for with Cytotec, Del Cid bulb, and Pitocin. Pain management: Open to epidural. GBS [negative]. Management of any complications: Preeclampsia with now newly diagnosed severe features magnesium sulfate started and labetalol given for blood pressure control per hypertensive protocol I have reviewed the [facility] and made any clinically relevant updates. Orders Orders: OB NST 10/19/19 O14.00, O16.3 POC Urinalysis 2 Dip (Clinic) 10/19/19 O14.00, O16.3 Protein+Creatinine Ratio,Urine 10/19/19 Z87.59 Comprehensive Metabolic Profil 10/19/19 Z87.59 CBC W/Diff, Automated 10/19/19 Z87.59 Coding Level of Care Code OB Routine Diagnoses Pap smear abnormality of cervix with ASCUS favoring benign R87.610 36 weeks gestation of Z3A.36 ??Weeks of gestation: 36 weeks History of pre-eclampsia Z87.59 Supervision of other normal Z34.80 Abnormal glucose affecting O99.810 Pre-eclampsia, mild O14.00 Additional Codes Non-Stress Test (74390)
[2019-10-22] MEDS: Labetalol 100 MG/20 ML Vial 40 MG IV (13:15)
[2019-10-22] MEDS: miSOPROStol 25 MCG TABLET PO (13:35)
[2019-10-22] MEDS: Lactated Ringers 500 ML IV.SOLN. 250 ML IV (18:11)
[2019-10-22] MEDS: Ondansetron 4 MG/2 ML Vial IV (18:17)
[2019-10-22] MEDS: Oxytocin 30 units/NS 500 ml 30 UNITS/500 ML IV.SOLN IV (19:41)
[2019-10-22] MEDS: Labetalol 200 MG Tablet PO (21:37)
[2019-10-23] VITALS (67 sets, daily range): BP systolic 112–179; BP diastolic 58–108; PULSE 71–102; RESP 12–18; TEMP 36.4–37.8; O2SAT 83–100
[2019-10-23] MEDS: 0.9% Saline Lock 10 ML Syringe IV ×2 (03:58→04:00)
[2019-10-23] MEDS: Lactated Ringers 500 ML 999 ML IV ×2 (04:05→09:40)
[2019-10-23] MEDS: Magnesium Sulfate 20 GM/500 ML BAG IV ×2 (04:59→15:37)
[2019-10-23] MEDS: Oxytocin 30 units/NS 500 ml 30 UNITS/500 ML IV.SOLN IV (05:02)
[2019-10-23] MEDS: Acetaminophen/Butalbital/Caffe 1 Tablet PO (06:25)
[2019-10-23] MEDS: fentaNYL-bupivacaine (epidural) 100 ML BAG EPIDURAL (10:10)
[2019-10-23] MEDS: Lactated Ringers 1,000 ML 200 ML IV (10:33)
[2019-10-23] MEDS: Oxytocin 30 units/NS 500 ml 30 UNITS/500 ML IV.SOLN 334 UNITS IV (12:13)
--- NOTE | 2019-10-23 12:33 | OP.PCM_ITS ---
Problem List (1) Abnormal glucose affecting Status: Acute Comment: 3hr GTT-normal (2) History of pre-eclampsia Status: Acute Comment: nl baseline labs, baby asa at 14 weeks (3) Pap smear abnormality of cervix with ASCUS favoring benign Status: Acute Comment: Repeat pap 06/2019 (4) Pre-eclampsia, mild Status: Acute Comment: nl growth US labs stable 10/18, plan iol at 37 weeks. bmz 10/15 and 10/16. labs 10/15. reviewed preeclampsia precautions and plan home bp monitoring. (5) Status: Acute Qualifiers: Comment: Declined genetic, carrier and NTD screening. Normal anatomy 06/25/19 (6) Supervision of other normal Status: Acute Comment: PRR MIKA 11/12/2019 girl (surprise name) SHMAA Santana Lloyd (his first) Report of Operation Date of Procedure: 10/23/19 Pre-Operative Diagnosis: iol severe preeclampsia Post-Operative Diagnosis: same Vaginal Delivery Maternal Presentation: Medically Indicated Induction 29-year-old G2, P1 at 37 weeks presents for induction of labor secondary to preeclampsia with severe features Method of Induction: Pitocin, Del Cid Bulb, Cytotec Medical Reason for Induction: Preeclampsia, eclampsia Amniotic Membrane Rupture Type: Artificial Amniotic Fluid Description: Clear Date of Procedure: 10/23/19 Pre-Operative Diagnosis: Preeclampsia with severe features Post-Operative Diagnosis: Same Surgery/ Procedure Performed: Spontaneous Vaginal Delivery Description of Procedure: Patient began pushing and delivered the head in the [LUCILLE] presentation. The head was delivered atraumatically. The anterior and posterior shoulders delivered without complication followed by the rest of the infant and the infant was placed on the maternal abdomen. Delayed cord clamping was employed for approximately 60 seconds. Cord was clamped and cut and gentle traction was applied to the cord and the placenta delivered spontaneously immediately following it was noted to be intact with three-vessel cord. The perineum and vagina were inspected and noted to have a small first-degree perineal laceration that was repaired in the usual fashion with 3-0 Vicryl Rapide. EBL was 300 cc. Patient and tolerated delivery well. Presentation: LUCILLE Placental Delivery Description: Spontaneous Placenta Disposition: [facility] Cord Vessel Description: 3 Vessels Cord Entanglement: None Estimated Blood Loss: 300 Infant A gender: Female Episiotomy Description: None Laceration: Perineal Extension/lac, 1st degree Medications given after delivery: IV Pitocin Complications: None Multi Select Codes - Urinary/Genital Urinary/Genital CPT Codes: 50239 Vaginal Delivery [facility]
[2019-10-23] MEDS: Labetalol 200 MG Tablet PO (14:16)
[2019-10-23 14:31] LABS: Absolute Lymphocyte Count 1.18 X10^3/uL (0.83-4.51); Absolute Neutrophil Count 19.4 X10^3/uL (2.0-7.7); Basophil# 0.03 X10^3/uL; Basophil% 0.1 % (0-1); Eosinophil# 0.12 X10^3/uL; Eosinophils% 0.5 % (0-5); Hematocrit 33.2 % (37-47); Hemoglobin 11.2 g/dL (12.0-15.0); Lymphocyte # 1.18 X10^3/ul (4.0); Lymphocyte % 5.4 % (19-41); Mean Corp Hgb Conc 33.7 g/dL (32-36); Mean Corpuscular Hgb 30.6 pg (27.0-32.0); Mean Corpuscular Volume 90.7 fL (81-99); Mean Platelet Vol. 8.9 fl (6.2-12.0); Monocyte# 0.97 X10^3/uL; Monocyte% 4.4 % (0-10); NRBC Flagged by Analyzer 0 % (0-5); Neutrophil # 19.43 X10^3/uL (2.7-7.7); Neutrophil % 88.9 % (47-70); Platelet Count 277 K/mm3 (150-450); RBC Distribution Width SD 45.5 fl (35.1-43.9); Red Blood Count 3.66 M/mm3 (4.2-5.4); White Blood Count 21.9 K/mm3 (4.4-11.0)
[2019-10-23 15:02] LABS: ALB/GLOB Ratio 0.7 RATIO (0.9-2.4); AST(SGOT) 20 U/L (15-37); Alanine Aminotransfer ALT/SGPT 21 U/L (13-56); Albumin, Serum 2.4 g/dL (3.2-5.0); Alkaline Phosphatase 215 U/L (45-117); Anion Gap 6 (5-15); BUN 11 mg/dL (7-18); BUN/Creat Ratio 14.1 RATIO (10-20); Calcium,Total 7.1 mg/dL (8.5-10.1); Chloride 107 mmol/L (98-107); Creatinine, Serum 0.78 mg/dL (0.55-1.02); EST Glomerular Filtration Rate 91 mL/min (>60); Est Glom Filt Rate - Afr Amer 110 mL/min (>60); Estimated Creatinine Clearance 86.45 ml/min; Globulin 3.6 g/dL (2.2-4.2); Glucose 105 mg/dL (74-106); Potassium 4.3 mmol/L (3.5-5.1); Sodium Level 137 mmol/L (136-145)
--- NOTE | 2019-10-23 15:37 | NURSING ---
new bag of magnesium sulfate hung. verified with cody schilling
[2019-10-23] MEDS: Acetaminophen 500 MG Tablet 1000 MG PO (17:06)
[2019-10-23] MEDS: Naproxen 250 MG Tablet 500 MG PO (21:39)
[2019-10-24] VITALS (26 sets, daily range): BP systolic 114–141; BP diastolic 61–86; PULSE 70–98; RESP 14–18; TEMP 36.7–37.5; O2SAT 96–99
[2019-10-24] MEDS: oxyCODONE 5 MG Tablet PO (00:42)
[2019-10-24] MEDS: Magnesium Sulfate 20 GM/500 ML BAG IV (01:37)
--- NOTE | 2019-10-24 06:55 | PN.OBGYN_ITS ---
Subjective: .pps - Physical Exam Vitals/I&O's: Vital Signs Temp Pulse Resp BP Pulse Ox 98.0 F 75 18 129/72 H 96 10/24/19 05:30 10/24/19 06:30 10/24/19 06:30 10/24/19 05:30 10/24/19 06:30 Oxygen Delivery Method Room Air Weight: 248 lb 2 oz Body Mass Index (BMI) 43.9 Intake and Output for Last 24 Hours 10/22/19 10/23/19 10/24/19 23:59 23:59 23:59 Intake Total 1860.50 / 1860.50 4323.78 / 4323.78 745.00 / 745.00 Output Total 1999 / 1999 1200 / 1200 300 / 300 Balance -139.50 / -139.50 3123.78 / 3123.78 445.00 / 445.00 General: Alert, Oriented x3 Laboratory Results 10/23/19 14:20: Sodium 137, Potassium 4.3, Chloride 107, Carbon Dioxide 24.0, Anion Gap 6, BUN 11, Creatinine 0.78, Estim Creat Clear Calc 86.45, Est GFR (MDRD) Af Amer 110, Est GFR (MDRD) Non-Af 91, BUN/Creatinine Ratio 14.1, Glucose 105, Calcium 7.1 L, Total Bilirubin 0.40, AST 20, ALT 21, Alkaline Phosphatase 215 H, Total Protein 6.0 L, Albumin 2.4 L, Globulin 3.6, Albumin/Globulin Ratio 0.7 L 10/23/19 14:20: WBC 21.9 H, RBC 3.66 L, Hgb 11.2 L, Hct 33.2 L, MCV 90.7, MCH 30.6, MCHC 33.7, RDW Std Deviation 45.5 H, RDW Coeff of Suri 14.0, Plt Count 277, MPV 8.9, Immature Gran % (Auto) 0.700, Neut % (Auto) 88.9 H, Lymph % (Auto) 5.4 L, [place] % (Auto) 4.4, Eos % (Auto) 0.5, Baso % (Auto) 0.1, Absolute Neuts (auto) 19.4 H, Absolute Lymphs (auto) 1.18, Nucleated RBC % 0 Current Medications Acetaminophen (Tylenol) 1,000 mg PO Q8H PRN PRN PRN Reason: Pain Score 1-3/10 Last Admin: 10/23/19 17:06 Dose: 1,000 mg Documented by: Bisacodyl (Dulcolax) 10 mg RECTAL UD PRN PRN Reason: If no BM Dibucaine (Dibucaine) 1 applic TOPICAL TID PRN PRN; Protocol PRN Reason: Discomfort Hydrocortisone (Hytone) 1 applic TOPICAL TID PRN PRN; Protocol PRN Reason: Discomfort Calcium Gluconate 1 gm/ N/A 10 mls @ 2 mls/min IV X1 PRN PRN Reason: Magnesium Toxicity Magnesium Sulfate (20gm/500ml) 20 gm in 500 mls @ 50 mls/hr IV .Q10H CHRIS Stop: 10/25/19 12:09 Last Infusion: 10/24/19 06:30 Dose: 2 gm/hr, 50 mls/hr Documented by: Midazolam HCl (Versed) 2 mg IV X1 PRN PRN Reason: Seizure Activity Naproxen (Naprosyn) 500 mg PO Q8H PRN PRN PRN Reason: Pain Score 1-3/10 Last Admin: 10/23/19 21:39 Dose: 500 mg Documented by: Ondansetron HCl (Zofran) 4 mg IV Q4H PRN PRN PRN Reason: Nausea Oxycodone HCl (Oxyir) 5 - 10 mg PO Q4H PRN PRN PRN Reason: Pain Score 4-10/10 Last Admin: 10/24/19 00:42 Dose: 5 mg Documented by: Senna/Docusate Sodium (Senokot-S, Caity-Colace) 1 - 2 tablet PO DAILY PRN PRN PRN Reason: Constipation Simethicone (Mylicon) 80 mg PO PCHS PRN PRN Reason: Indigestion/Stomach pain Sodium Chloride () 5 - 15 ml IV UD PRN PRN Reason: SALINE FLUSH Medical Necessity - Tobacco Use Smoking Status: Former smoker Assessment/Plan All Active Problems (Last Reviewed 10/19/19 @ 11:02 by Edita Rollins) Pre-eclampsia, mild (Acute) Abnormal glucose affecting (Acute) Supervision of other normal (Acute) History of pre-eclampsia (Acute) (Acute) Pap smear abnormality of cervix with ASCUS favoring benign (Acute) Elevated blood pressure affecting in third trimester, antepartum (Resolved) cryo surgery (Resolved) s/p PPD # 1 1. routine post delivery care 2. breast feeding- support given 3. rh positive 4. rubella immune 5. Preeclampsia with severe features?complete magnesium sulfate course of 24 hours . No antihypertensives restarted as of yet but will monitor blood pressures throughout the day. Labs stable.
--- NOTE | 2019-10-24 06:56 | DCINST_ITS ---
Discharge Diet: No Restrictions Discharge Activity: Return to Normal Activity, May not drive while taking narcotic pain medications., May Shower May resume sexual activity in: 4-6 weeks Call your doctor if your incision/area has: Continuous Slow Oozing, Sudden Increased Bleeding, Increased Pain/ Swelling, Increased Redness, Foul Smelling Discharge Additional Instructions: If you experience any of the following, contact your healthcare provider. * Bleeding that soaks a pad every hour for 2 hours * Fever 100.4 or higher * Unrelieved incision or abdominal pain * Swelling, redness, discharge or bleeding from your incision or episiotomy site * Your incision begins to separate * Problems urinating (including inability to urinate or burning while urinating). * Visual changes * Severe headache * Flu-like symptoms * Pain or redness in one of both of your breasts * Pain, warmth, tenderness or swelling in your legs, especially the calf area * Frequent nausea and vomiting * Symptoms of depression or anxiety If you experience any of the following, call 911 or go to the nearest Emergency Room. * Chest pain * Problems breathing * Seizure activity * Partial or complete paralysis of a body part, slurred speech, weakness or drooping of the face, or a sudden inability to walk or hold your balance Allergies/Adverse Reactions: Allergies amoxicillin Allergy (Unknown, Verified 10/19/19 11:02) Rash blueberry Adverse Reaction (Intermediate, Verified 10/19/19 11:02) Nausea/Vom/Diarrhea Medications to take at Discharge multivitamin no.47-iron fum 27 mg-folate no.1 1 mg-dha 300 mg capsule 1 cap PO DAILY 04/16/19 aspirin 81 mg tablet,delayed release 81 mg PO DAILY 06/12/19 Calcium Carbonate [Calcium] 500 mg PO DAILY 09/30/19 blood pressure test kit-large See Rx Instructions .ROUTE .MEDSUPPLY #1 ea 10/16/19 Please Follow Up With: Leora Clement MD - [phone] When: Call to make an appointment with your doctor in 6 weeks. If you had elevated Blood pressure or 4th degree laceration you will need to be seen in 2 weeks. Primary Care Physician: Care Physician,No Primary [Primary Care Provider] - Test Results: Test results from this visit will be discussed in further detail at your follow- up appointment, if applicable.
[2019-10-24] MEDS: 0.9% Saline Lock 10 ML Syringe IV (12:01)
--- NOTE | 2019-10-24 15:08 | NURSING ---
1430-Dr Clement notified of more recent BP. plan to continue to monitor at this time.
[2019-10-24] MEDS: Naproxen 250 MG Tablet 500 MG PO (17:33)
[2019-10-24] MEDS: Acetaminophen 500 MG Tablet 1000 MG PO (21:05)
[2019-10-25] VITALS (9 sets, daily range): BP systolic 132–158; BP diastolic 73–98; PULSE 81–92; RESP 14–18; TEMP 36.8–37.2; O2SAT 98
[2019-10-25] MEDS: oxyCODONE 5 MG Tablet PO ×2 (01:45→09:03)
[2019-10-25] MEDS: Naproxen 250 MG Tablet 500 MG PO (04:29)
--- NOTE | 2019-10-25 08:54 | PCM.PN.OB ---
Subjective: doing well no complaints pain controlled no CP SOB N V ambulating well tolerating po lochia moderate, going well - Physical Exam Vitals/I&O's: Vital Signs Temp Pulse Resp BP Pulse Ox 98.3 F 81 14 154/87 H 98 10/25/19 08:49 10/25/19 08:50 10/25/19 08:49 10/25/19 08:50 10/25/19 01:40 Oxygen Delivery Method Room Air Weight: 248 lb 2 oz Body Mass Index (BMI) 43.9 Intake and Output for Last 24 Hours 10/23/19 10/24/19 10/25/19 23:59 23:59 23:59 Intake Total 4323.78 / 4323.78 1100.83 / 1100.83 Output Total 1200 / 1200 600 / 600 Balance 3123.78 / 3123.78 500.83 / 500.83 General: Alert, Oriented x3 Current Medications Acetaminophen (Tylenol) 1,000 mg PO Q8H PRN PRN PRN Reason: Pain Score 1-310 Last Admin: 10/24/19 21:05 Dose: 1,000 mg Documented by: Bisacodyl (Dulcolax) 10 mg RECTAL UD PRN PRN Reason: If no BM Dibucaine (Dibucaine) 1 applic TOPICAL TID PRN PRN; Protocol PRN Reason: Discomfort Hydrocortisone (Hytone) 1 applic TOPICAL TID PRN PRN; Protocol PRN Reason: Discomfort Calcium Gluconate 1 gm/ N/A 10 mls @ 2 mls/min IV X1 PRN PRN Reason: Magnesium Toxicity Midazolam HCl (Versed) 2 mg IV X1 PRN PRN Reason: Seizure Activity Naproxen (Naprosyn) 500 mg PO Q8H PRN PRN PRN Reason: Pain Score 1-3/10 Last Admin: 10/25/19 04:29 Dose: 500 mg Documented by: Ondansetron HCl (Zofran) 4 mg IV Q4H PRN PRN PRN Reason: Nausea Oxycodone HCl (Oxyir) 5 - 10 mg PO Q4H PRN PRN PRN Reason: Pain Score 4-10/10 Last Admin: 10/25/19 01:45 Dose: 5 mg Documented by: Senna/Docusate Sodium (Senokot-S, Caity-Colace) 1 - 2 tablet PO DAILY PRN PRN PRN Reason: Constipation Simethicone (Mylicon) 80 mg PO PCHS PRN PRN Reason: Indigestion/Stomach pain Sodium Chloride () 5 - 15 ml IV UD PRN PRN Reason: SALINE FLUSH Last Admin: 10/24/19 12:01 Dose: 10 ml Documented by: Medical Necessity - Tobacco Use Smoking Status: Former smoker Assessment/Plan All Active Problems (Last Reviewed 10/19/19 @ 11:02 by Edita Rollins) Pre-eclampsia, mild (Acute) Abnormal glucose affecting (Acute) Supervision of other normal (Acute) History of pre-eclampsia (Acute) (Acute) Pap smear abnormality of cervix with ASCUS favoring benign (Acute) Elevated blood pressure affecting in third trimester, antepartum (Resolved) cryo surgery (Resolved) s/p PPD # 2 1. routine post delivery care 2. breast feeding- support given 3. rh positive 4. rubella immune 5. Preeclampsia with severe features?s/p magnesium sulfate course of 24 hours . discussed criteria for starting procardia- script ordered and plan home bp monitoring and fu in 1 week for bp heck in office. reviewed precautions
== END 2019-10-25 10:50 | disposition home or self-care (01) | DRG 807 ==
PROVIDERS: Admitting Provider Obstetrics & Gynecology; Referring Provider Obstetrics & Gynecology; Visit Provider Obstetrics & Gynecology
DX: O14.14 Severe pre-eclampsia complicating childbirth (principal); Z37.0 Single live birth; O60.14X0 Preterm labor third trimester with preterm delivery third trimester, not applicable or unspecified; O99.814 Abnormal glucose complicating childbirth; O70.0 First degree perineal laceration during delivery; Z3A.37 37 weeks gestation of pregnancy; Z87.891 Personal history of nicotine dependence; Z28.21 Immunization not carried out because of patient refusal
CPT/HCPCS: 59025; 59050; 80053; 85025; 86850; 86900; 86901; 99218; J7120; A4216; G0378; J2405

== ENCOUNTER → 2020-12-26 09:20 | Outpatient (CLI) | payer OTHER, SELFPAY ==
[2020-12-26 10:01] LABS: Absolute Lymphocyte Count 1.87 X10^3/uL (0.83-4.51); Absolute Neutrophil Count 6.7 X10^3/uL (2.0-7.7); Basophil# 0.04 X10^3/uL; Basophil% 0.4 % (0-1); Eosinophil# 0.14 X10^3/uL; Eosinophils% 1.5 % (0-5); Hematocrit 38.2 % (37-47); Hemoglobin 12.7 g/dL (12.0-15.0); Lymphocyte # 1.87 X10^3/ul (0.83-4.51); Lymphocyte % 20.2 % (19-41); Mean Corp Hgb Conc 33.2 g/dL (32-36); Mean Corpuscular Hgb 29.5 pg (27.0-32.0); Mean Corpuscular Volume 88.6 fL (81-99); Mean Platelet Vol. 7.9 fl (6.2-12.0); Monocyte# 0.49 X10^3/uL; Monocyte% 5.3 % (0-10); NRBC Flagged by Analyzer 0 % (0-5); Neutrophil # 6.67 X10^3/uL (2.7-7.7); Neutrophil % 72.1 % (47-70); Platelet Count 321 K/mm3 (150-450); RBC Distribution Width CV 12.7 % (11.6-14.6); RBC Distribution Width SD 41.4 fl (35.1-43.9); Red Blood Count 4.31 M/mm3 (4.2-5.4); White Blood Count 9.3 K/mm3 (4.4-11.0)
[2020-12-26 10:24] LABS: Glucose Challenge Gest 1H 50g 144 mg/dL (70-140)
[2020-12-26 11:57] LABS: HIV - WCH Non-Reactive (Nonreactive); Hepatitis B Surface Antigen Non-Reactive (Nonreactive); Hepatitis C Antibody Non-Reactive (Nonreactive); Rubella IgG Reactive (Nonreactive); Syphilis Antibodies Non-reactive
[2020-12-26 15:38] LABS: Amphetamine Urine VISTA NEGATIVE (<1000 ng/mL); Barbiturate Urine VISTA NEGATIVE (< 200 ng/mL); Benzodiazepine Urine VISTA NEGATIVE (< 200 ng/mL); Cocaine Urine VISTA NEGATIVE (< 300 ng/mL); Ecstacy Urine VISTA NEGATIVE (< 500 ng/mL); Methadone Urine VISTA NEGATIVE (< 300 ng/mL); PCP Urine VISTA NEGATIVE (< 25 ng/mL); THC Urine VISTA NEGATIVE (< 50 ng/mL); Vista UDS pH Range 7
[2020-12-28 22:07] LABS: Chlamydia By Nucleic Acid AMP Negative (Negative)
[2020-12-29 08:10] LABS: Gonococcus By Nucleic Acid AMP Negative (Negative)
== END ==
PROVIDERS: Referring Provider Obstetrics & Gynecology; Visit Provider Obstetrics & Gynecology
DX: Z34.90 Encounter for supervision of normal pregnancy, unspecified, unspecified trimester (principal)
CPT/HCPCS: 36415; 80307; 82950; 85025; 86703; 86762; 86780; 86803; 86850; 86900; 86901; 87086; 87088; 87340; 87491; 87591

== ENCOUNTER → 2021-01-23 11:36 | Outpatient (CLI) | payer OTHER, SELFPAY ==
[2021-01-23 12:13] LABS: Protein, Urine (Random) 8.2 mg/dL (<11.9); Protein:Creat Ratio 142 mg/g CRE (0-200)
[2021-01-23 12:41] LABS: ALB/GLOB Ratio 0.8 RATIO (0.9-2.4); AST(SGOT) 12 U/L (15-37); Alanine Aminotransfer ALT/SGPT 14 U/L (13-56); Albumin, Serum 3.4 g/dL (3.2-5.0); Alkaline Phosphatase 68 U/L (45-117); Anion Gap 6 (5-15); BUN 10 mg/dL (7-18); BUN/Creat Ratio 15.5 RATIO (10-20); Calcium,Total 9.8 mg/dL (8.5-10.1); Chloride 105 mmol/L (98-107); Creatinine, Serum 0.64 mg/dL (0.55-1.02); EST Glomerular Filtration Rate 113 mL/min (>60); Est Glom Filt Rate - Afr Amer 136 mL/min (>60); Globulin 4.3 g/dL (2.2-4.2); Glucose 90 mg/dL (74-106); Potassium 3.6 mmol/L (3.5-5.1); Protein, Total 7.7 g/dL (6.4-8.2); Sodium Level 136 mmol/L (136-145)
== END ==
PROVIDERS: Referring Provider Obstetrics & Gynecology; Visit Provider Obstetrics & Gynecology
DX: O09.299 Supervision of pregnancy with other poor reproductive or obstetric history, unspecified trimester (principal)
CPT/HCPCS: 36415; 80053; 82570; 84156

== ENCOUNTER 2021-04-26 14:44 | Outpatient (CLI) | payer OTHER, SELFPAY ==
[2021-04-26 14:59] LABS: Absolute Lymphocyte Count 2.56 X10^3/uL (0.83-4.51); Absolute Neutrophil Count 10.2 X10^3/uL (2.0-7.7); Basophil# 0.03 X10^3/uL; Basophil% 0.2 % (0-1); Eosinophil# 0.21 X10^3/uL; Eosinophils% 1.5 % (0-5); Hematocrit 34.3 % (37-47); Lymphocyte # 2.56 X10^3/ul (0.83-4.51); Lymphocyte % 18.3 % (19-41); Mean Corpuscular Hgb 31.7 pg (27.0-32.0); Mean Corpuscular Volume 90.5 fL (81-99); Monocyte# 0.86 X10^3/uL; Monocyte% 6.2 % (0-10); NRBC Flagged by Analyzer 0 % (0-5); Neutrophil # 10.18 X10^3/uL (2.7-7.7); Neutrophil % 72.9 % (47-70); Platelet Count 300 K/mm3 (150-450); RBC Distribution Width CV 14.1 % (11.6-14.6); RBC Distribution Width SD 45.8 fl (35.1-43.9); Red Blood Count 3.79 M/mm3 (4.2-5.4)
== END 2021-04-26 23:59 | disposition home or self-care (01) ==
LOC: PAVLAB 14:45
PROVIDERS: Referring Provider Obstetrics & Gynecology; Visit Provider Obstetrics & Gynecology
DX: O09.90 Supervision of high risk pregnancy, unspecified, unspecified trimester (principal)
CPT/HCPCS: 36415; 85025

== ENCOUNTER 2021-05-26 08:24 | Outpatient (CLI) | payer OTHER, SELFPAY ==
--- NOTE | 2021-05-26 08:53 | US_ITS ---
STUDY: SECOND AND THIRD TRIMESTER OBSTETRICAL ULTRASOUND REASON FOR EXAM: Female, 31 years old growth LMP: 10/16/2020. TECHNIQUE: Transabdominal TECHNICAL QUALITY: Adequate. PRIOR ULTRASOUND: None. FINDINGS: There is a single intrauterine fetus. The fetus is in a cephalic presentation. There is demonstrated cardiac activity with a heart rate of 129 bpm. There is a normal amniotic fluid volume. The largest amniotic fluid pocket measures 4 cm. The amniotic fluid index (GIORGIO) is 12.7 cm. The placenta is left lateral in location and is not low lying. There are Grade 0 placental changes. The cervix measures 3.6 cm in length. The adnexal regions are not visualized. BIOMETRY: BPD: 7.88 cm: 31 weeks, 4 days HC: 29.22 cm: 32 weeks, 1 days AC: 27.39 cm: 31 weeks, 3 days FL: 6.13 cm: 31 weeks, 5 days CI: 77% FL/BPD: 78% FL/HC: FL/AC: 22% HC/AC: 1.07 age by current US: 31 weeks, 4 days. MIKA by current US: 07/24/2021. Estimated weight: 1820 grams, +/- 2073 grams, 38 %. Age by LMP: 31 weeks, 5 days. MIKA by LMP: 07/23/2021. US/OB Limited With Biometrics IMPRESSION: Single live intrauterine gestation with a mean gestational age of 31 weeks and 4 days. Electronically Signed: Edmar Frausto MD at 12:49 EST ,
== END 2021-05-26 23:59 | disposition home or self-care (01) ==
PROVIDERS: Referring Provider Obstetrics & Gynecology; Visit Provider Obstetrics & Gynecology
DX: O24.419 Gestational diabetes mellitus in pregnancy, unspecified control (principal); Z3A.00 Weeks of gestation of pregnancy not specified
CPT/HCPCS: 76816

== ENCOUNTER 2021-06-23 08:44 | Outpatient (CLI) | payer OTHER, SELFPAY ==
--- NOTE | 2021-06-23 08:55 | US_ITS ---
STUDY: SECOND AND THIRD TRIMESTER OBSTETRICAL ULTRASOUND - LIMITED REASON FOR EXAM: Female, 31 years old 36w growth LMP: 10/16/2020. PRIOR ULTRASOUND: Comparison is made with prior study 05/26/2021. TECHNIQUE: Transabdominal TECHNICAL QUALITY: Adequate. FINDINGS: There is a single intrauterine fetus. The fetus is in a cephalic presentation. There is demonstrated cardiac activity with a heart rate of 144 bpm. There is a normal amniotic fluid volume. The largest amniotic fluid pocket measures 4.7 cm. The amniotic fluid index (GIORGIO) is 11.3 cm. The placenta is left lateral in location and is not low lying. There are Grade 1 placental changes. BIOMETRY: BPD: 8.6 cm: 34 weeks, 5 days HC: 31.1 cm: 34 weeks, 5 days AC: 30.9 cm: 34 weeks, 5 days FL: 6.9 cm: 35 weeks, 2 days Age by LMP: 35 weeks, 5 days. MIKA by LMP: 07/23/2021. age by prior US: 35 weeks, 4 days. MIKA by prior US: 07/24/2021. age by current US: 34 weeks, 6 days. MIKA by current US: 07/31/2021. Estimated weight: 2592 grams, +/- 389 grams, 33 percentile. US/OB Limited With Biometrics IMPRESSION: Single live uterine gestation with mean gestational age of 35 weeks and 4 days. The measurements obtained today following thin the normal expected range. Electronically Signed: Edmar Frausto MD at 9:58 EDT ,
== END 2021-06-23 23:59 | disposition home or self-care (01) ==
LOC: OPUS 08:54
PROVIDERS: Referring Provider Obstetrics & Gynecology; Visit Provider Obstetrics & Gynecology
DX: O24.419 Gestational diabetes mellitus in pregnancy, unspecified control (principal)
CPT/HCPCS: 76816

== ENCOUNTER 2021-06-27 11:58 | Outpatient (CLI) | payer OTHER, SELFPAY ==
[2021-06-27 12:40] LABS: Protein, Urine (Random) 77.5 mg/dL (<11.9); Protein:Creat Ratio 215 mg/g CRE (0-200)
== END 2021-06-27 23:59 | disposition home or self-care (01) ==
LOC: LABSPEC 12:00
PROVIDERS: Referring Provider Nurse Practitioner Women's Health; Visit Provider Nurse Practitioner Women's Health
DX: O09.299 Supervision of pregnancy with other poor reproductive or obstetric history, unspecified trimester (principal); Z3A.00 Weeks of gestation of pregnancy not specified
CPT/HCPCS: 82570; 84156

== ENCOUNTER 2021-06-27 12:16 | Outpatient (CLI) | payer OTHER, SELFPAY ==
[2021-06-27 12:50] LABS: Absolute Lymphocyte Count 1.81 X10^3/uL (0.83-4.51); Absolute Neutrophil Count 9.1 X10^3/uL (2.0-7.7); Basophil# 0.04 X10^3/uL; Basophil% 0.3 % (0-1); Eosinophil# 0.18 X10^3/uL; Eosinophils% 1.5 % (0-5); Hematocrit 34.4 % (37-47); Hemoglobin 11.5 g/dL (12.0-15.0); Lymphocyte # 1.81 X10^3/ul (0.83-4.51); Lymphocyte % 15.2 % (19-41); Mean Corp Hgb Conc 33.4 g/dL (32-36); Mean Corpuscular Hgb 29.6 pg (27.0-32.0); Mean Corpuscular Volume 88.7 fL (81-99); Mean Platelet Vol. 8.5 fl (6.2-12.0); Monocyte# 0.61 X10^3/uL; Monocyte% 5.1 % (0-10); NRBC Flagged by Analyzer 0 % (0-5); Neutrophil # 9.12 X10^3/uL (2.7-7.7); Platelet Count 240 K/mm3 (150-450); RBC Distribution Width CV 14.3 % (11.6-14.6); RBC Distribution Width SD 45.3 fl (35.1-43.9); Red Blood Count 3.88 M/mm3 (4.2-5.4); White Blood Count 11.9 K/mm3 (4.4-11.0)
[2021-06-27 13:07] LABS: ALB/GLOB Ratio 0.7 RATIO (0.9-2.4); AST(SGOT) 18 U/L (15-37); Alanine Aminotransfer ALT/SGPT 23 U/L (13-56); Albumin, Serum 2.6 g/dL (3.2-5.0); Alkaline Phosphatase 171 U/L (45-117); Anion Gap 6 (5-15); BUN 8 mg/dL (7-18); BUN/Creat Ratio 11.7 RATIO (10-20); Calcium,Total 8.5 mg/dL (8.5-10.1); Chloride 106 mmol/L (98-107); Creatinine, Serum 0.68 mg/dL (0.55-1.02); EST Glomerular Filtration Rate 105 mL/min (>60); Est Glom Filt Rate - Afr Amer 127 mL/min (>60); Globulin 3.9 g/dL (2.2-4.2); Glucose 109 mg/dL (74-106); Potassium 3.8 mmol/L (3.5-5.1); Protein, Total 6.5 g/dL (6.4-8.2); Sodium Level 137 mmol/L (136-145)
== END 2021-06-27 23:59 | disposition home or self-care (01) ==
PROVIDERS: Referring Provider Nurse Practitioner Women's Health; Visit Provider Nurse Practitioner Women's Health
DX: O09.299 Supervision of pregnancy with other poor reproductive or obstetric history, unspecified trimester (principal); Z3A.00 Weeks of gestation of pregnancy not specified
CPT/HCPCS: 36415; 80053; 85025

== ENCOUNTER 2021-06-29 17:23 | Outpatient (CLI) | payer OTHER, SELFPAY | END 2021-06-29 23:59 | disposition home or self-care (01) | PROVIDERS: Referring Provider Nurse Practitioner Women's Health; Visit Provider Nurse Practitioner Women's Health | DX: Z34.90 Encounter for supervision of normal pregnancy, unspecified, unspecified trimester (principal); Z3A.35 35 weeks gestation of pregnancy | CPT/HCPCS: 87081 ==

== ENCOUNTER → 2021-07-04 | Outpatient (CLI) | payer OTHER, SELFPAY ==
[2021-07-04 12:42] LABS: Absolute Lymphocyte Count 2.15 X10^3/uL (0.83-4.51); Absolute Neutrophil Count 9.4 X10^3/uL (2.0-7.7); Basophil# 0.04 X10^3/uL; Basophil% 0.3 % (0-1); Eosinophil# 0.23 X10^3/uL; Eosinophils% 1.8 % (0-5); Hematocrit 34.9 % (37-47); Hemoglobin 11.7 g/dL (12.0-15.0); Lymphocyte # 2.15 X10^3/ul (0.83-4.51); Lymphocyte % 16.7 % (19-41); Mean Corp Hgb Conc 33.5 g/dL (32-36); Mean Corpuscular Hgb 30.3 pg (27.0-32.0); Mean Corpuscular Volume 90.4 fL (81-99); Mean Platelet Vol. 8.5 fl (6.2-12.0); Monocyte# 0.91 X10^3/uL; Monocyte% 7.1 % (0-10); NRBC Flagged by Analyzer 0 % (0-5); Neutrophil # 9.44 X10^3/uL (2.7-7.7); Neutrophil % 73.1 % (47-70); Platelet Count 246 K/mm3 (150-450); RBC Distribution Width CV 14.5 % (11.6-14.6); RBC Distribution Width SD 46.5 fl (35.1-43.9); Red Blood Count 3.86 M/mm3 (4.2-5.4); White Blood Count 12.9 K/mm3 (4.4-11.0)
[2021-07-04 12:58] LABS: ALB/GLOB Ratio 0.7 RATIO (0.9-2.4); AST(SGOT) 18 U/L (15-37); Alanine Aminotransfer ALT/SGPT 20 U/L (13-56); Albumin, Serum 2.7 g/dL (3.2-5.0); Alkaline Phosphatase 188 U/L (45-117); Anion Gap 7 (5-15); BUN 10 mg/dL (7-18); BUN/Creat Ratio 15.6 RATIO (10-20); Calcium,Total 8.9 mg/dL (8.5-10.1); Chloride 104 mmol/L (98-107); Creatinine, Serum 0.64 mg/dL (0.55-1.02); EST Glomerular Filtration Rate 114 mL/min (>60); Est Glom Filt Rate - Afr Amer 137 mL/min (>60); Globulin 4.1 g/dL (2.2-4.2); Glucose 74 mg/dL (74-106); Potassium 4.2 mmol/L (3.5-5.1); Protein, Total 6.8 g/dL (6.4-8.2); Sodium Level 135 mmol/L (136-145)
[2021-07-04 12:59] LABS: Protein, Urine (Random) 6.8 mg/dL (<11.9); Protein:Creat Ratio 234 mg/g CRE (0-200)
== END | disposition home or self-care (01) ==
LOC: PAVLAB 12:12
PROVIDERS: Referring Provider Nurse Practitioner Women's Health; Visit Provider Nurse Practitioner Women's Health
DX: O09.299 Supervision of pregnancy with other poor reproductive or obstetric history, unspecified trimester (principal); Z3A.00 Weeks of gestation of pregnancy not specified
CPT/HCPCS: 36415; 80053; 82570; 84156; 85025

== ENCOUNTER 2021-07-06 20:00 | Inpatient (IN) | payer OTHER, SELFPAY ==
[2021-07-06] VITALS (11 sets, daily range): BP systolic 131–145; BP diastolic 80–98; PULSE 77–92; TEMP 36.6–37.1; O2SAT 97–99; BMI 41.6
--- NOTE | 2021-07-06 18:20 | HP.PCM.OB_ITS ---
HPI - General General Date of Admission: 07/06/21 HPI Narrative PETER NATH, is a 31 y/o @ 37 weeks 4 days who presents to labor and delivery with headaches and elevated blood pressure. She was found to also have an increase in proteinuria. And diagnosed with mild preeclampsia. The decision was made to admit her and start induction of labor. She states that this exact thing happened with her last . Maternal Data Information MIKA Calculator Estimated Delivery Date Method Current WG Current Estimate 07/23/21 LMP (Certain) 37w 5d [facility] Medical History (Updated 07/07/21 @ 07:[address] Nabila Bernard, DO) Anxiety Depression Gestational diabetes History of pre-eclampsia Pre-eclampsia Home Medications multivitamin no.47-iron fum 27 mg-folate no.1 1 mg-dha 300 mg capsule 1 cap PO DAILY 04/16/19 [History Last Taken 07/05/21 08:30] calcium carbonate 500 mg PO DAILY 09/30/19 [History Last Taken 07/05/21 08:30] ascorbic acid (vitamin C) 500 mg capsule 500 mg PO DAILY 12/26/20 [History Last Taken 07/05/21 08:30] cholecalciferol (vitamin D3) 25 mcg (1,000 unit) capsule 25 mcg PO DAILY 12/26/20 [History Last Taken 07/05/21 08:30] flaxseed oil 1,000 mg capsule 1,000 mg PO DAILY 12/26/20 [History Last Taken 07/05/21 08:30] blood sugar diagnostic #50 ea 12/27/20 [Rx Last Taken Unknown] blood-glucose meter #1 ea 12/27/20 [Rx Last Taken Unknown] sertraline 100 mg tablet 100 mg PO QDAY #30 tab 12/29/20 [Rx Last Taken 07/06/21 08:30] insulin NPH isoph U-100 human 100 unit/mL (3 mL) subcutaneous pen 40 unit SUBCUT 0600,2030 ml 05/12/21 [History Last Taken 07/06/21 08:00] hydroxyzine pamoate 25 mg capsule 25 mg PO BID PRN #30 cap 06/20/21 [Rx Last Taken 07/03/21] Allergy/AdvReac Type Severity Reaction Status Date / Time amoxicillin Allergy Unknown Rash Verified 07/06/21 18:13 tree nut AdvReac Severe Nausea/Vom/ Verified 07/06/21 18:13 Diarrhea blueberry AdvReac Intermediate Nausea/Vom/ Verified 07/06/21 18:13 Diarrhea Family History Grandfather Hypertension Grandmother Ovarian cancer Uterine cancer Skin cancer Colon cancer Cancer of kidney Mother Diabetes Surgical History cryo surgery Social History adopted: No number of children: 2 current occupational status: employed 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 history of recent travel: No sexually active: No Smoking Status: Former smoker second hand exposure: Yes alcohol intake: current alcohol intake frequency: holidays/special occasions only substance use type: does not use well-balanced diet: daily or most days caffeine: Yes what type of physical activity do you participate in: walking and weight training seatbelt use: always do you feel safe at home: Yes additional 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 Date Name GA/Weeks Outcome Route Bth Weight [facility]08 Esther 40 live - full term 7lbs 4oz Female e pidural [facility] Dr. Polanco 10/23/19 Mattie 37 live - full term 5lbs 10oz Female epidural [facility] Dr. Urbano Desai Delivery Date: 12/06/08 pre-eMARC Emily Delivery Date: 10/23/19 pre-e Edita Rollins Visit Details Expected Delivery Route/Plan Labor Preferences- CB/BF classes: [] labor support person: [] labor intervention preferences: [] pain management options preferred: [] cut cord/dad catch: [] : [] PP control planned: [] discussed possible routes of delivery and associated risks: [] special requests: [] Plans Covid status: non immune counseled regarding risk of covid in vs vaccination and declined vaccination Flu vaccine: declined Tdap vaccine: declined Rhogam: na LARC form signed: [] movement and labor precautions reviewed. Problem list reviewed and updated with the most current plan of care details and appropriate orders placed. Relevant counseling for the gestational age provided. Continue routine care and follow up unless otherwise noted in visit notes/problem list details OB Flowsheet Initial Weight: 203 lb Date -?-?-?-?-?-?-?-?-?-?-?-?- EGA Weight BP Urine Prot -?-?-?-?-?-?-?-?-?-?-?-?- Glucose FHR FuHt Pres Dilation -?-?-?-?-?-?-?-?-?-?-?-?- Effaced St Visit Note 12/26/20 -?-?-?-?-?-?-?-?-?-?-?-?- 10w 1d 206 lb (+3 lb) 128/86 -?-?-?-?-?-?-?-?-?-?-?-?- 160 -?-?-?-?-?-?-?-?-?-?-?-?- SM- CRL cons wit h LMP SM- CRL 3cm cons with LMP 12/29/20 -?-?-?-?-?-?-?-?-?-?-?-?- 10w 4d 203 lb (+0 oz) 132/92 -?-?-?-?-?-?-?-?-?-?-?-?- 170 -?-?-?-?-?-?-?-?-?-?-?-?- SM- no vb crampi ng having increased anxieyt and depression, severe symptoms, no suicidal plan. start zoloft and vistaril encouraged counseling 01/23/21 -?-?-?-?-?-?-?-?-?-?-?-?- 14w 1d 199 lb 8 oz (-3 lb 8 oz) 136/80 Trace -?-?-?-?-?-?-?-?-?-?-?-?- Negative 144 -?-?-?-?-?-?-?-?-?-?--?-?- MH-NO VB, LOF. B rief US to confirm FHT. Now GDM, seeing . CMP and urine PC ratio today 02/24/21 -?-?-?-?-?-?-?-?-?-?-?-?- 18w 5d 204 lb (+16 oz) 110/80 Negative -?-?-?-?-?-?-?-?-?-?-?-?- Negative 147 -?-?-?-?-?-?-?-?-?-?-?-?- JV- no lof, va g inal bleeding, or dec fm. on insulin. anatomy scan today in [place] 03/31/21 -?-?-?-?-?-?-?-?-?-?-?-?- 23w 5d 216 lb 2 oz (+13 lb 2 oz) 120/80 Negative -?-?-?-?-?-?-?-?-?-?-?-?- Negative 145 -?-?-?-?-?-?-?-?-?-?-?-?- JV- pt states th at she has a massive headache (gets them regularly even before ) Dr. Davis following. plan for twice weekly nsts at 32 weeks 04/26/21 -?-?-?-?-?-?-?-?-?-?-?-?- 27w 3d 221 lb 8 oz (+18 lb 8 oz) 124/78 Negative -?-?-?-?-?-?-?-?-?-?-?-?- Negative 140 29 -?-?-?-?-?-?-?-?-?-?-?-?- JV- no lof, vagi nal bleeding, or dec fm. Talks to Dr. Davis and glucose levels are normal. 05/12/21 -?-?-?-?-?-?-?-?-?-?-?-?- 29w 5d 225 lb (+22 lb) 104/82 -?-?-?-?-?-?-?-?-?-?-?-?- 140 30 -?-?-?-?-?-?-?-?-?-?-?-?- SM- no vb lof go od fm no regular ctx. - SM- no vb lof good fm no reg ular ctx. 05/26/21 -?-?-?-?-?-?-?-?-?-?-?-?- 31w 5d 231 lb (+28 lb) 136/80 Negative -?-?-?-?-?-?-?-?-?-?-?-?- Negative 140 32 -?-?-?-?-?-?-?-?-?-?-?-?- SM- no vb lof go od fm no regualr ctx SM- no vb lof good fm no reg ualr ctx BS controlled 05/29/21 -?-?-?-?-?-?-?-?-?-?-?-?- 32w 1d 230 lb 4 oz (+27 lb 4 oz) 121/71 Negative -?-?-?-?-?-?-?-?-?-?-?-?- Negative 140 -?-?-?-?-?-?-?-?-?-?-?-?- -NST only reac tive 06/01/21 -?-?-?-?-?-?-?-?-?-?-?-?- 32w 4d 228 lb 2 oz (+25 lb 2 oz) 110/80 Negative -?-?-?-?-?-?-?-?-?-?-?-?- Negative 135 -?-?-?-?-?-?-?-?-?-?-?-?- JV- NST reactive today. no lof, vaginal bleeding, or dec fm. recently went up on insulin. plan for growth scans and if needed delivery at 38 weeks if uncontrolled otherwise 39 week delivery 06/06/21 -?-?-?-?-?-?-?-?-?-?-?-?- 33w 2d 232 lb 4 oz (+29 lb 4 oz) 118/80 Negative -?-?-?-?-?-?-?-?-?-?-?-?- Negative 130 -?-?-?-?-?-?-?-?-?-?-?-?- -NST only reac tive 06/09/21 -?-?-?-?-?-?-?-?-?-?-?-?- 33w 5d 236 lb (+33 lb) 127/83 -?-?-?-?-?-?-?-?-?-?-?-?- 130 -?-?-?-?-?-?-?-?-?-?-?-?- SM- no vb lof go od fm nor egular ctx BS controlled. 06/13/21 -?-?-?-?-?-?-?-?-?-?-?-?- 34w 2d 237 lb (+34 lb) 128/82 Negative -?-?-?-?-?-?-?-?-?-?-?-?- Negative 140 -?-?-?-?-?-?-?-?-?-?-?-?- -NST only reac tive 06/16/21 -?-?-?-?-?-?-?-?-?-?-?-?- 34w 5d 239 lb 3 oz (+36 lb 3 oz) 132/86 Negative -?-?-?-?-?-?-?-?-?-?-?-?- Negative 140 -?-?-?-?-?-?-?-?-?-?-?-?- Sm- no vb lof go od fm nor egular ctx bs reviewed 06/20/21 -?-?-?-?-?-?-?-?-?-?-?-?- 35w 2d 239 lb (+36 lb) 123/81 Negative -?-?-?-?-?-?-?-?-?-?-?-?- Negative 150 -?-?-?-?-?-?-?-?-?-?-?-?- -NST only reac tive. Very emotional due to home stressors. Taking Zoloft 100mg daily. Not using vistaril 50mg-makes her sleepy. Will send new Rx vistaril 25mg 06/23/21 -?-?-?-?-?-?-?-?-?-?-?-?- 35w 5d 240 lb (+37 lb) Negative -?-?-?-?-?-?-?-?-?-?-?-?- Negative 130 -?-?-?-?-?-?-?-?-?-?-?-?- JV- NST reactive today. no complaints or concerns. 06/27/21 -?-?-?-?-?-?-?-?-?-?-?-?- 36w 2d 235 lb 4 oz (+32 lb 4 oz) 126/80 1+ -?-?-?-?-?-?-?-?-?-?-?-?- Negative 150 -?-?-?-?-?-?-?-?-?-?-?-?- MH-reactive NST only. Pre E labs due to proteinuria. Denies heachache, vision changes. 06/29/21 -?-?-?-?-?-?-?-?-?-?-?-?- 36w 4d 238 lb 8 oz (+35 lb 8 oz) 132/88 126/86 Trace -?-?-?-?--?-?-?-?-?-?-?-?- Negative 130 -?-?-?-?-?-?-?-?-?-?-?-?- MH-reactive NST. Good FM. NO VB, LOF or CTX. 07/04/21 -?-?-?-?-?-?-?-?-?-?-?-?- 37w 2d 245 lb 4 oz (+42 lb 4 oz) 126/86 Negative -?-?-?-?-?-?-?-?-?-?-?-?- Negative 140 -?-?-?-?-?-?-?-?-?-?-?-?- MH-NST only reac tive. Pre E labs 07/06/21 -?-?-?-?-?-?-?-?-?-?-?-?- 37w 4d 137/98 138/88 139/84 141/80 141/83 125/70 130/82 136/84 132/78 136/99 -?-?-?-?-?-?-?-?-?-?-?-?- -?-?-?-?-?-?-?-?-?-?-?-?- ROS Constitutional Constitutional: Denies change in weight, fatigue, fever(s), headache(s), poor appetite or weakness Eyes Eyes: Denies blurry vision, change in vision, seeing flashes or spots in vision ENT HEENT: Denies dizziness, headache(s), loss taste/smell or sore throat Cardiovascular Cardiovascular: Denies chest pain, dizziness, dyspnea, irregular heart rhythm, leg edema, palpitations, rapid heart rate or vomiting Respiratory/Chest Respiratory/Chest: Denies chest tightness, cough, dyspnea or breast pain Gastrointestinal Gastrointestinal: Denies abdominal pain, anorexia, constipation, cramping, diarrhea, hemorrhoids, vomiting or weight changes Genitourinary Genitourinary: Denies dysuria, flank pain, genital lesions, genital pain, urinary frequency or urinary urgency Musculoskeletal Musculoskeletal: Denies back pain, difficulty walking, joint pain, limited range of motion, muscle cramps or numbness Integumentary Integumentary: Denies lesions or unusual bruising Neurologic Neurologic: Denies abnormal movements, abnormal speech, dizziness, numbness, seizure-like activity or syncope Psychiatric Psychiatric: Denies anxiety, behavioral changes, change in appetite, change in libido, cognitive impairment, confusion, depression, difficulty concentrating, hallucinations or suicidal thoughts Endocrine Endocrinology: Denies excessive sweating, polydipsia or polyuria Hematologic/Lymphatic Hematologic/Lymphatic: Denies easy bleeding, easy bruising or lymphadenopathy Allergic/Immunologic Allergic/Immunologic: Denies itchy eyes, lip swelling, seasonal rhinorrhea, rhinitis, throat swelling, tongue swelling, eczemia, wheezing or asthma Vital Signs Vital Signs Vital Signs: 07/06/21 18:21 07/06/21 18:36 07/06/21 18:52 Temperature 97.8 F Temperature Source Temporal Pulse Rate 78 79 84 Blood Pressure 145/96 H 145/98 H 139/95 H BP Systolic 145 145 139 BP Diastolic 96 98 95 Pulse Ox 99 98 07/06/21 19:20 07/06/21 19:27 07/06/21 19:42 Temperature Temperature Source Pulse Rate 77 86 92 Blood Pressure 136/87 H 131/88 H 138/93 H BP Systolic 136 131 138 BP Diastolic 87 88 93 Pulse Ox 07/06/21 20:52 07/06/21 21:45 07/06/21 22:37 Temperature Temperature Source Pulse Rate 80 83 79 Blood Pressure 137/98 H 138/88 H 139/84 H BP Systolic 137 138 139 BP Diastolic 98 88 84 Pulse Ox 07/06/21 22:38 07/06/21 23:55 07/07/21 01:13 Temperature 98.7 F 98.6 F 99.2 F H Temperature Source Temporal Temporal Temporal Pulse Rate 92 95 Blood Pressure 141/80 H 141/83 H BP Systolic 141 141 BP Diastolic 80 83 Pulse Ox 98 97 97 07/07/21 02:43 07/07/21 02:44 07/07/21 03:59 Temperature 98.9 F 98.2 F Temperature Source Temporal Temporal Pulse Rate 84 73 Blood Pressure 125/70 H 130/82 H BP Systolic 125 130 BP Diastolic 70 82 Pulse Ox 97 97 07/07/21 05:02 07/07/21 06:05 07/07/21 06:09 Temperature 98.8 F 98.0 F Temperature Source Temporal Temporal Pulse Rate 72 86 245 H Blood Pressure 136/84 H 132/78 H BP Systolic 136 132 BP Diastolic 84 78 Pulse Ox 98 99 99 07/07/21 06:12 Temperature Temperature Source Pulse Rate 108 H Blood Pressure BP Systolic BP Diastolic Pulse Ox 99 Weight Weight: 238 lb 12.17 oz Body Mass Index (BMI) 41.6 Physical Exam Const alert, oriented x3, no apparent distress and healthy appearing General Appearance: cooperative; Negative for anxious HEENT normocephalic Face and Sinus: normal facial exam Eyes EOMs intact bilaterally and no scleral icterus General Eye: normal appearance of both eyes Neck full ROM and supple Lymph Lymphatic: no lymphadenopathy noted Chest Chest: abnormal inspection of the chest Resp normal respiratory effort Effort and Inspection: able to speak in complete sentences Cardio regular rate GI soft to palpation and non-tender Inspection: gravid Palpation: soft; Negative for tender external exam normal Back/Spine no CVA tenderness Extremity normal to inspection, full ROM and no clubbing, cyanosis or edema General Extremity: Negative for calf tenderness or edema Skin Lesions: no lesions Rashes: no rashes Psych mental status grossly normal Labs Labs Labs: Blood Type O POSITIVE Antibody Screen NEGATIVE Hct 33.6 % (37-47) L Hgb 11.7 g/dL (12.0-15.0) L Obstetrics US Syphilis Total Ab Non-reactive Rubella IgG Antibody Reactive (Nonreactive) Hep Bs Antigen Non-Reactive (Nonreactive) Chlamydia DNA (JONATHAN) Negative (Negative) Neisseria gonorrhoeae DNA (JONATHAN) Negative (Negative) HIV 1&2 Antibody Non-Reactive (Nonreactive) Glucose 1 Hr 50 gm 144 mg/dL (70-140) H Group B Strep DNA Negative (Negative) Rhogam given: No Assessment & Plan (1) Preeclampsia: (2) : QUALIFIERS: Weeks of gestation: 35 weeks Qualified Code(s): Z3A.35 - 35 weeks gestation of COMMENT: declines screening for ntd carrier and genetic. Anatomy US normal. GBS negative (3) Supervision of high risk , antepartum: COMMENT: PRR MIKA: 07/23/21 girl surprise name PC: EstherSaumya Spouse: Lloyd (4) H/O pre-eclampsia in prior , currently : COMMENT: baseline labs, 81 mg ASA at 14 weeks/started, recheck labs in 1 week P/C rising (5) Obesity affecting : QUALIFIERS: Trimester: third trimester Qualified Code(s): O99.213 - Obesity complicating , third trimester COMMENT: 1 tm GCT. encouraged healthy weight gain. BMI 35. (6) Anxiety and depression: COMMENT: abril bar (7) Gestational diabetes mellitus (GDM) affecting : COMMENT: insulin controlled, 2x weekly testing, delivery at 39. growth q 4 weeks. 06/27 growth ultrasound nl (8) Contraception management: COMMENT: wants to discuss BS with MD PLAN: Patient presents IOL, plan management for with cytotec/ pitocin/AROM. Pain management: plans epidural. GBS negative. Management of any complications: obesity, gestational diabetes - start protocol for glucose screening I have reviewed the [facility] and made any clinically relevant updates.
[2021-07-06 18:39] LABS: Absolute Lymphocyte Count 2.67 X10^3/uL (0.83-4.51); Absolute Neutrophil Count 8.9 X10^3/uL (2.0-7.7); Basophil# 0.03 X10^3/uL; Basophil% 0.2 % (0-1); Eosinophil# 0.23 X10^3/uL; Eosinophils% 1.8 % (0-5); Hematocrit 33.6 % (37-47); Hemoglobin 11.7 g/dL (12.0-15.0); Lymphocyte # 2.67 X10^3/ul (0.83-4.51); Lymphocyte % 20.9 % (19-41); Mean Corp Hgb Conc 34.8 g/dL (32-36); Mean Corpuscular Hgb 30.7 pg (27.0-32.0); Mean Corpuscular Volume 88.2 fL (81-99); Mean Platelet Vol. 8.7 fl (6.2-12.0); Monocyte# 0.86 X10^3/uL; Monocyte% 6.7 % (0-10); NRBC Flagged by Analyzer 0 % (0-5); Neutrophil # 8.88 X10^3/uL (2.7-7.7); Neutrophil % 69.6 % (47-70); Platelet Count 268 K/mm3 (150-450); RBC Distribution Width CV 14.4 % (11.6-14.6); RBC Distribution Width SD 45.7 fl (35.1-43.9); Red Blood Count 3.81 M/mm3 (4.2-5.4); White Blood Count 12.8 K/mm3 (4.4-11.0)
[2021-07-06 18:53] LABS: BUN 10 mg/dL (7-18); Creatinine, Serum 0.56 mg/dL (0.55-1.02); Glucose 75 mg/dL (74-106)
[2021-07-06 18:54] LABS: ALB/GLOB Ratio 0.6 RATIO (0.9-2.4); AST(SGOT) 14 U/L (15-37); Alanine Aminotransfer ALT/SGPT 18 U/L (13-56); Albumin, Serum 2.6 g/dL (3.2-5.0); Alkaline Phosphatase 185 U/L (45-117); Anion Gap 7 (5-15); BUN/Creat Ratio 17.9 RATIO (10-20); Calcium,Total 9.2 mg/dL (8.5-10.1); Chloride 110 mmol/L (98-107); EST Glomerular Filtration Rate 132 mL/min (>60); Est Glom Filt Rate - Afr Amer 160 mL/min (>60); Potassium 4.1 mmol/L (3.5-5.1); Protein, Total 6.6 g/dL (6.4-8.2); Sodium Level 138 mmol/L (136-145)
[2021-07-06 19:28] LABS: Color, Urine Yellow (Yellow); Glucose, Dipstick Normal (Normal); Ketone-Dipstick Negative (Negative); Leukocyte Esterase-Dipstick 25 /ul (Negative); Nitrite-Dipstick Negative (Negative); Occult Blood-Urine 25 /ul (Negative); Protein-Dipstick 30 mg/dl (Negative); Specific Gravity, Urine 1.015 (1.002-1.030); Urine Bilirubin Dipstick Negative (Negative); Urine Clarity Clear (Clear); Urine Urobilinogen Normal (Normal)
[2021-07-06 19:48] LABS: Protein, Urine (Random) 44.8 mg/dL (<11.9); Protein:Creat Ratio 347 mg/g CRE (0-200)
[2021-07-06] MEDS: miSOPROStol 25 MCG TABLET VAGINAL (21:50)
[2021-07-06 22:45] LABS: Bedside Glucose 159 mg/dL (74-106)
[2021-07-06] MEDS: Acetaminophen 500 MG Tablet PO (22:53)
[2021-07-06] MEDS: Insulin NPH Human 100 UNITS/ML PEN 40 UNITS SC (23:11)
[2021-07-07] VITALS (92 sets, daily range): BP systolic 76–148; BP diastolic 37–99; PULSE 60–245; RESP 18; TEMP 36.6–37.8; O2SAT 83–100
[2021-07-07] MEDS: Lactated Ringers 1,000 ML 200 ML IV (02:01)
[2021-07-07] MEDS: 0.9% Saline Lock 10 ML Syringe IV (02:01)
[2021-07-07] MEDS: miSOPROStol 25 MCG TABLET VAGINAL (02:47)
[2021-07-07 03:35] LABS: Bedside Glucose 107 mg/dL (74-106)
[2021-07-07 05:26] LABS: Bedside Glucose 75 mg/dL (74-106)
--- NOTE | 2021-07-07 07:23 | PN_ITS ---
Progress Note pt is comfortable in bed. She is status post 2 doses of cytotec current tracing: FHT: 120 Moderate variability reactive no decelerations category I tracing [place]: irregular Contractions q 2-4 min cx: 4/70/-2 and very anterior (behind pubic bone) reviewed tracing abnormalities since last note: none with exception of baseline changes A/P: start pitocin now. plan for AROM in 1-2 hours when contraction pattern more regular.
[2021-07-07] MEDS: Oxytocin 30 units/NS 500 ml 30 UNITS/500 ML IV.SOLN IV (07:26)
[2021-07-07 08:55] LABS: Bedside Glucose 79 mg/dL (74-106)
[2021-07-07 12:56] LABS: Bedside Glucose 72 mg/dL (74-106)
[2021-07-07] MEDS: Lactated Ringers 500 ML 999 ML IV ×2 (13:21→14:24)
[2021-07-07] MEDS: fentaNYL-bupivacaine (epidural) 100 ML BAG EPIDURAL (13:57)
[2021-07-07 14:16] LABS: Bedside Glucose 65 mg/dL (74-106)
[2021-07-07] MEDS: Ondansetron 4 MG/2 ML Vial IV (14:55)
[2021-07-07] MEDS: Amnioinfusion- 0.9% NS 1,000 ML IV.SOLN. 1000 ML INTRA-UTER (15:06)
[2021-07-07 15:31] LABS: Bedside Glucose 60 mg/dL (74-106)
[2021-07-07] MEDS: Oxytocin 30 units/NS 500 ml 30 UNITS/500 ML IV.SOLN 334 UNITS IV (16:04)
[2021-07-07 16:45] LABS: Bedside Glucose 96 mg/dL (74-106)
--- NOTE | 2021-07-07 17:09 | OP.PCM_ITS ---
Maternal Data Information MIKA Calculator Estimated Delivery Date Method Current Current Estimate 07/23/21 LMP (Certain) 37w 5d Vaginal Delivery Maternal Presentation Maternal Presentation: Medically Indicated Induction Type of Induction: Cervidil, Pitocin and Amniotomy Medical Reason for Induction: Preeclampsia, eclampsia Operative Information Date of Procedure: 07/07/21 Pre-Operative Diagnosis: 37 weeks with pre-eclampsia, Post-Operative Diagnosis: 37 weeks with pre-eclampsia, Surgery / Procedure Performed: Spontaneous Vaginal Delivery Type of Anesthesia: Epidural Estimated Blood Loss: 100cc Findings Description of Procedure: Patient began pushing and delivered the head in the LUCILLE presentation. The head was delivered atraumatically . The anterior and posterior shoulders delivered without complication followed by the rest of the infant and the was placed on the maternal abdomen. Delayed cord clamping was employed for approximately 60 seconds. Cord was clamped and cut and gentle traction was applied to the cord and the placenta delivered spontaneously immediately following it was noted to be intact with three-vessel cord. The perineum and vagina were inspected and noted to have a 1st degree perineal laceration that was repaired with a 3-0 vicryl rapide stitch . EBL was 100 cc. Patient and infant tolerated delivery well. Presentation: LUCILLE Amniotic Membrane Rupture Type: Spontaneous Amniotic Fluid Description: Clear Placental Delivery Description: Spontaneous Placenta Disposition: [facility] Cord Vessel Description: 3 Vessels Cord Entanglement: None Infant A Gender: Female (1 minute): 8 (5 minute): 9 Delayed Cord Clamping: Yes Post Vaginal Delivery Medications Given After Delivery: IV Pitocin Episiotomy Description: None Laceration: 1st degree Complication Complications: None Multi Select Codes Urinary/Genital Urinary/Genital CPT Codes: 16931 Vaginal Delivery [facility]
[2021-07-08 00:22] VITALS: BP 126/72; PULSE 72; RESP 16; TEMP 36.9
[2021-07-08 03:10] VITALS: BP 137/75; PULSE 73; RESP 14; TEMP 36.4
[2021-07-08] MEDS: Acetaminophen 500 MG Tablet 1000 MG PO (04:54)
[2021-07-08 06:21] LABS: Bedside Glucose 113 mg/dL (74-106)
--- NOTE | 2021-07-08 07:38 | PN.OBGYN_ITS ---
Subjective Subjective Patient doing well without complaints. Tolerating PO. Ambulating and voiding without difficulty. Feeding well. Denies chest pain, shortness of breath, calf pain/swelling, fevers, chills, lightheadedness. Objective Data Objective Data Vital Signs: Vital Signs Temp Pulse Resp BP Pulse Ox 97.5 F L 73 14 137/75 H 100 07/08/21 03:10 07/08/21 03:10 07/08/21 03:10 07/08/21 03:10 07/07/21 18:15 Oxygen Delivery Method Room Air Weight: 238 lb 12.17 oz Body Mass Index (BMI) 41.6 Intake & Output: Intake and Output for Last 24 Hours 07/06/21 07/07/21 07/08/21 23:59 23:59 23:59 Intake Total 4003.57 / 4003.57 Output Total 1700 / 1700 Balance 2303.57 / 2303.57 Lab / Micro Data Result Diagrams: 07/06/21 18:27 07/06/21 18:27 Labs: Laboratory Results - last 24 hr 07/07/21 08:50: POC Glucose 79 07/07/21 12:49: POC Glucose 72 L 07/07/21 14:08: POC Glucose 65 L 07/07/21 15:22: POC Glucose 60 L 07/07/21 16:40: POC Glucose 96 07/08/21 06:07: POC Glucose 113 H Micro: Microbiology 07/06/21 20:45 Nasal Secretion SARS-CoV-2 Antigen (Rapid) - Final ROS Constitutional Constitutional: Denies chills, fatigue, fever(s), poor appetite or weakness Eyes Eyes: Denies blurry vision, change in vision, seeing flashes or spots in vision ENT HEENT: Denies dizziness, headache(s), loss taste/smell or sore throat Cardiovascular Cardiovascular: Denies chest pain, dizziness, dyspnea, irregular heart rhythm, palpitations or rapid heart rate Respiratory/Chest Respiratory/Chest: Denies chest tightness, cough, dyspnea or breast pain Gastrointestinal Gastrointestinal: Denies abdominal pain, constipation or vomiting Genitourinary Genitourinary: Denies dysuria or flank pain Musculoskeletal Musculoskeletal: Denies difficulty walking, joint pain, limited range of motion or numbness Neurologic Neurologic: Denies abnormal movements, abnormal speech, dizziness, numbness, se izure-like activity or syncope Psychiatric Psychiatric: Denies anxiety, behavioral changes, change in appetite, confusion, depression or suicidal thoughts Physical Exam Const alert, oriented x3 and no apparent distress General Appearance: cooperative and comfortable Resp normal respiratory effort Cardio regular rate GI normal to inspection, nondistended, normoactive bowel sounds GI Narrative: uterus is firm below umbilicus Palpation: soft Back/Spine no CVA tenderness and thoraco-lumbar ROM normal Extremity normal to inspection, no clubbing, cyanosis or edema, no calf tenderness and no pedal edema Psych mental status grossly normal, thought process normal, cooperative, affect normal, speech normal, activity/motor behavior normal, denies homicidal ideation and denies suicidal ideation Assessment & Plan (1) Preeclampsia: COMMENT: baby girl Catherine- [place] 07/07/21 PLAN: s/p PPD # 1 1. routine post delivery care 2. breast feeding- support given 3. rh positive 4. rubella immune 5. mild pre-eclampsia with resolution of hypertension and asymptomatic. Plan for dc to home later today.
--- NOTE | 2021-07-08 07:41 | PCM.DC ---
Discharge Instructions Diet Discharge Diet: No restrictions Activity Discharge Activity: Return to Normal Activity, May Not Drive (while taking narcotic pain medications.) and May Shower May resume sexual activity in: 4-6 weeks Dressing / Incision Call your doctor if your incision/area has: Continuous Slow Oozing, Sudden Increased Bleeding, Increased Pain/ Swelling, Increased Redness and Foul Smelling Discharge Follow Up Care Please Follow Up With: Nabila Bernard DO When: Call [phone] to make an appointment with your doctor in 6 weeks. If you had elevated blood pressure or 4th degree laceration, you will need to be seen in 2 weeks. Test Results: Test results from this visit will be discussed in further detail at your follow-up appointment, if applicable. Discharge Plan Admission Admit Date/Time: 07/06/21 20:00 Primary Reason for Your Visit: vaginal delivery and pre-eclampsia Attending Provider: Nabila Bernard Discharge Orders/Prescriptions Prescriptions: New ibuprofen 600 mg tablet 600 mg PO Q6H PRN (Reason: cramping and pain ) 7 Days Qty: 30 RF: 0 Continued PNV-DHA 27 mg iron-1 mg -300 mg capsule 1 cap PO DAILY RF: 0 flaxseed oil [[place]-3 Flaxseed Oil] 1,000 mg capsule 1,000 mg PO DAILY RF: 0 ascorbic acid (vitamin C) 500 mg capsule 500 mg PO DAILY RF: 0 sertraline [Zoloft] 100 mg tablet 100 mg PO QDAY Qty: 30 RF: 12 hydroxyzine pamoate [Vistaril] 25 mg capsule 25 mg PO BID PRN (Reason: anxiety) Qty: 30 RF: 0 calcium carbonate 500 MG tablet 500 mg PO DAILY RF: 0 Discontinued Humulin N NPH Insulin KwikPen 100 unit/mL (3 mL) insulin pen 40 unit subcut RF: 0 No Action cholecalciferol (vitamin D3) 25 mcg (1,000 unit) capsule 25 mcg PO DAILY RF: 0 (DME) blood-glucose meter Misc See Rx Instructions .ROUTE .MEDSUPPLY Qty: 1 RF: 0 (DME) Blood Glucose Test Strip See Rx Instructions .ROUTE .MEDSUPPLY Qty: 50 RF: 1 Disposition Disposition (needs filled in before D/C Order can be placed): Home, Self Care
[2021-07-08 08:03] VITALS: BP 134/86; PULSE 70; RESP 16; TEMP 36.4
[2021-07-08 12:07] VITALS: BP 131/80; PULSE 79; RESP 16; TEMP 36.3
[2021-07-08] MEDS: Ibuprofen 600 MG Tablet PO (12:28)
--- NOTE | 2021-07-08 14:57 | CM.ED ---
Addendum entered by Estephanie Schmid 07/08/21 15:25: Patient reports she received PNC from Dr. Roe. Patient plans to use OTC control and then have the FOB get an vasectomy. NB is named Catherine Payne : 07/07/[birth year] Weight: 6#4 ounces Manugrapher: Ana Lilia Breast Feeding: wonderful Estephanie Binu AUTOMOTIVE BRAKE SPECIALIST LISWS Original Note: Social Work Assessment Labor and Delivery Unit Patient: Maricarmen Yadav Patient Address: [address] [place] [address] Phone number: [phone] Date of Referral: 07/08/21 Time of Referral: 14:00 Referred By: Nursing Staff - Elizabeth Date of Intervention: 07/08/21 Time of Intervention:14:15 Reason for Referral: History of Anxiety and depression, possible history of PPD History obtained from: medical records and mother of baby (MOB). Patient PHQ2 score was 0. Patient denied SI/HI on WP screen. Household composition: Patient, her Lloyd and their 3 children (n/b, 20 month old girl and 12 year old girl) .Patient's /FOB Lloyd is not biological father to the 12 year old however per patient she says he is more of a father to her than her own biological father. FOB and patient have been together for 5 years and for 3 years. FOB will be involved at . FOB works at [employer] as the head diesel engine ii pipe fitter. Patient said that the FOB will take time off from work but she is unsure how much time the FOB will take off. Patient said that the FOB's work is 10 minutes from their house and the FOB's employers are very supportive. FOB, per patient, has no MH, AOD or domestic violence issues. Educational Status: Patient reports she was home schooled and went through the 12th grade but did not graduate. No learning issues noted or observed Infant Supplies: Patient reports she has the carseat, crib, bassinet, and all supplies. Childcare/Caregiver(s): Patient does not work outside the home thus child welfare director is not needed. Patient rporets that her supports include her and daughters. Patient reports her family is local. Patient reports that they are also involved in a small group and their small group member is a RN who helped deliver the nb. Transportation: Patient reports access to transportation Programs/Agencies Involved: Patient reports no community agency or program involvement. Children Services/Legal Issues: Patient reports no CSB or legal issues Behavioral Health Issues: Mental Health History: Patient reports that after the of her 20 month she had some post depression. She met with her OB and the OB put her on medication. Patient said that she is on Zoloft and has taken the medication since prescribed except for a couple of months during the summer last year. Patient said that she and her OB have talked about the possibility of increasing her medication during the post period. Patient is planning to continue to take the Zoloft. Patient said that she has not had individual counseling but has gone to counseling with her daughter and been included included in a session with her. Patient said that she has had anxiety since she was young. Patient said that the medication, Zoloft, has been helpful. Patient aid that she also felt that the weather contributed to her depression as during the summer she did not feel depressed and thus discontinued the medication. Patient said that if she needs counseling their jew, [facility], provides counseling. Patient's OB prescribes patient's zoloft. AOD History: Patient reports she drinks alcohol socially but does not drink when . No other drug use. Depression/Shaken Baby/Safe Sleeping: SW met with patient and reviewed post depression and also provided them handout on resources related to PPD. Patient was educated on shaken baby syndrome and safe sleeping. BINTA spoke to HERMELINDO Johnson, who reports no concerns or issues with patient. Plan: Home at discharge Estephanie GARCIA
[2021-07-08 16:26] VITALS: BP 128/81; PULSE 75; RESP 16; TEMP 36.8
[2021-07-08 17:05] VITALS: RESP 16
== END 2021-07-08 17:40 | disposition home or self-care (01) | DRG 807 ==
LOC: WPOUT 20:03 → WP 20:03
PROVIDERS: Admitting Provider Obstetrics & Gynecology; Visit Provider Obstetrics & Gynecology
DX: O14.04 Mild to moderate pre-eclampsia, complicating childbirth (principal); Z37.0 Single live birth; E66.9 Obesity, unspecified; F41.9 Anxiety disorder, unspecified; O24.429 Gestational diabetes mellitus in childbirth, unspecified control; F32.A Depression, unspecified; O70.0 First degree perineal laceration during delivery; O99.344 Other mental disorders complicating childbirth; O12.14 Gestational proteinuria, complicating childbirth; Z87.891 Personal history of nicotine dependence; O99.213 Obesity complicating pregnancy, third trimester; Z3A.37 37 weeks gestation of pregnancy
CPT/HCPCS: 59025; 59050; 80053; 81002; 82570; 82962; 84156; 85025; 86850; 86900; 86901; 87426; 99218; J7030; J7120; A4216; G0378; J2405

== ENCOUNTER 2022-09-24 13:14 | Emergency (ER) | payer OTHER, SELFPAY ==
[2022-09-24 13:15] VITALS: BP 140/89; PULSE 93; RESP 18; TEMP 35.5; O2SAT 99; BMI 33.5
--- NOTE | 2022-09-24 13:42 | RAD_ITS ---
STUDY: X-RAY CHEST REASON FOR EXAM: Female, 32 years old. Left lower chest pain. TECHNIQUE: PA and lateral views of the chest. COMPARISON: None. FINDINGS: Mild increased markings at the left lung base suggestive of left basilar linear atelectasis. There is no demonstrated pleural abnormality. Normal size heart. Normal mediastinum and anna. Normal visualized pulmonary arteries. Normal visualized aortic arch and descending thoracic aorta. Normal visualized thoracic spine. Normal visualized ribs, clavicles, and shoulders. There is no demonstrated abnormality of the visualized soft tissue structures of the upper abdomen. RAD/Chest PA and Lateral IMPRESSION: Increased linear markings at the left lung base suggestive of mild degree of linear atelectasis. Electronically Signed: Edmar Frausto MD at 14:16 EDT ,
--- NOTE | 2022-09-24 13:42 | EKG12_ITS ---
Test Reason : ABD PAIN Blood Pressure : / mmHG Vent. Rate : 086 BPM Atrial Rate : 086 BPM P-R Int : 130 ms QRS Dur : 086 ms QT Int : 342 ms P-R-T Axes : 035 011 014 degrees QTc Int : 409 ms Normal sinus rhythm Minimal voltage criteria for LVH, may be normal variant ( R in aVL ) Borderline ECG Confirmed by HERON RENE, BRIANNA ([id number]), editor & co founder KATHERYN SHAH ([id number]) on 09/26/2022 10:20:15 AM Referred By: Confirmed By:BRIANNA SHELBY MD
--- NOTE | 2022-09-24 13:43 | EDS_ITS ---
HPI HPI - GI History of Present Illness Chief Complaint: Abd Pain Informant: patient Narrative Narrative: For the past 24 hours or little more, patient has been having very pleuritic high left upper quadrant pain that radiates to her left shoulder when she takes a deep breath. Not dyspneic but it is very pleuritic. Feels like it is under her left rib cage but no pain elsewhere including the back. She is breast- feeding a baby, menstrual cycles of just recently been coming back to normal as far as regularity, her last one was a week ago and is finished. No nausea, vomiting, fevers, chills, diarrhea, bright red blood per rectum, melena, or problems urinating. Never had this before. Lying down makes it a lot worse, sitting up and forward makes it better. [facility] Medical History Anxiety Depression Gestational diabetes History of pre-eclampsia Pre-eclampsia Home Medications multivitamin no.47-iron fum 27 mg-folate no.1 1 mg-dha 300 mg capsule (PNV-DHA) 1 cap PO DAILY 04/16/19 [History Last Taken 07/05/21 08:30] calcium carbonate 500 mg calcium (1,250 mg) tablet 500 mg PO DAILY Check with primary doctor 09/30/19 [History Last Taken 07/05/21 08:30] ascorbic acid (vitamin C) 500 mg capsule 500 mg PO DAILY 12/26/20 [History Last Taken 07/05/21 08:30] cholecalciferol (vitamin D3) 25 mcg (1,000 unit) capsule 25 mcg PO DAILY 12/26/20 [History Last Taken 07/05/21 08:30] flaxseed oil 1,000 mg capsule ([place]-3 Flaxseed Oil) 1,000 mg PO DAILY 12/26/20 [History Last Taken 07/05/21 08:30] sertraline 100 mg tablet (Zoloft) 100 mg PO QDAY anxiety #30 tabs 12/29/20 [Rx Last Taken 07/06/21 08:30] hydroxyzine pamoate 25 mg capsule (Vistaril) 25 mg PO BID PRN anxiety #30 caps 06/20/21 [Rx Last Taken 07/03/21] naproxen 500 mg tablet 500 mg PO BID PRN #14 tabs 09/24/22 [Rx Last Taken Unknown] Allergy/AdvReac Type Severity Reaction Status Date / Time amoxicillin Allergy Unknown Rash Verified 09/24/22 13:14 tree nut AdvReac Severe Nausea/Vom/ Verified 09/24/22 13:14 Diarrhea Family History Grandfather Hypertension Grandmother Ovarian cancer Uterine cancer Skin cancer Colon cancer Cancer of kidney Mother Diabetes Surgical History cryo surgery Social History adopted: No number of children: 3 current occupational status: employed 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 history of recent travel: No sexually active: No Smoking Status: Former smoker second hand exposure: Yes alcohol intake: current alcohol intake frequency: holidays/special occasions only substance use type: does not use well-balanced diet: daily or most days caffeine: Yes what type of physical activity do you participate in: walking and weight training seatbelt use: always do you feel safe at home: Yes additional social history: - 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 - 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 ROS ROS ED Constitutional Constitutional ED: Denies chills or fever(s) Eyes Eyes: Denies change in vision or diplopia ENT ENT ED: Denies rhinorrhea or sore throat Cardiovascular Cardiovascular: Denies chest pain or palpitations Respiratory/Chest Respiratory/Chest: Denies cough, dyspnea or dyspnea on exertion Gastrointestinal Gastrointestinal: Reports abdominal pain; Denies diarrhea, nausea or vomiting Genitourinary Genitourinary ED: Denies dysuria or hematuria Musculoskeletal Musculoskeletal: Denies back pain or neck pain Integumentary Denies abscess or rash Neurologic Neurologic: Denies headache(s), paresthesias or weakness Psychiatric Psychiatric: Denies anxiety or suicidal thoughts EXAM Physical Exam Const Vital Signs: 09/24/22 13:15 Temperature 96 F L Temperature Source Temporal Pulse Rate 93 Respiratory Rate 18 Blood Pressure 140/89 H Blood Pressure Mean 106 Pulse Ox 99 Oxygen Delivery Method Room Air Positive well nourished and well developed General Appearance ED: well developed and NAD HEENT Reports moist mucous membranes normocephalic and atraumatic Eyes PERRL and EOMs intact bilaterally Neck full ROM and supple Resp normal respiratory effort and clear to auscultation bilaterally Resp Narrative: Splinting with deep inspiration. Equal breath sounds bilaterally, otherwise lungs clear. Cardio regular rate, regular rhythm and no murmurs Rate: Negative for tachycardic GI non-distended GI Narrative: Mildly tender in the left upper quadrant. Auscultation: normoactive bowel sounds Palpation: soft Back/Spine no CVA tenderness General Back: other FROM Extremity normal to inspection General Extremety ED: Negative for edema, pulses abnormal or tenderness General Extremity: Negative for edema or pulses abnormal Neuro oriented x3, CN's II-XII intact bilaterally and no sensory deficits noted Sensorium / Orientation: awake and alert Motor Exam: strength 5/5 throughout Skin no rashes or lesions noted and no wounds MDM MDM MDM Narrative Medical decision making narrative: Started with a two-view chest x-ray which is normal my interpretation, radiology confirms there is some atelectasis in the left base which is nonspecific and not necessarily the cause of her discomfort. Given positive Kehr's sign and a negative D-dimer, I sent her for CT of the abdomen/pelvis to rule out a process below the diaphragm that could be referring discomfort to her left shoulder, without the need for CT'ing her chest. Reviewed the images and the results which I agree with, basically negative for any acute process. It did show the nonspecific atelectasis, as well as an incidental right ovarian cyst. EKG and troponin also normal. During this work-up Toradol was given she felt much better with that. I suspect this is probably pleurisy, reassured, given appropriate discharge instructions with a prescription for Naprosyn and outpatient follow-up advised. She does not have a PCP so she was referred to the next physician on the unassigned list, Dr. Kumari. Lab Data Attestation: I reviewed the patient's lab results. Labs: Laboratory Results - last 24 hr 09/24/22 13:53 WBC 8.8 RBC 4.68 Hgb 13.1 Hct 40.0 MCV 85.5 MCH 28.0 MCHC 32.8 RDW Std Deviation 39.4 RDW Coeff of Suri 12.8 Plt Count 388 MPV 7.8 Immature Gran % (Auto) 0.500 Neut % (Auto) 57.7 Lymph % (Auto) 28.9 [place] % (Auto) 7.5 Eos % (Auto) 4.6 Baso % (Auto) 0.8 Absolute Neuts (auto) 5.1 Absolute Lymphs (auto) 2.53 Nucleated RBC % 0 D-Dimer Quant (PE/DVT) 0.45 Sodium 139 Potassium 4.1 Chloride 106 Carbon Dioxide 28.0 Anion Gap 5 BUN 13 Creatinine 0.82 Estim Creat Clear Calc 79.97 Est GFR (MDRD) Af Amer 102 Est GFR (MDRD) Non-Af 84 BUN/Creatinine Ratio 15.8 Glucose 90 Calcium 9.1 Total Bilirubin 0.30 AST 12 L ALT 16 Alkaline Phosphatase 97 Total Protein 8.2 Albumin 3.7 Globulin 4.5 H Albumin/Globulin Ratio 0.8 L Lipase 30 Radiography Diagnostic Testing: Clinical Impression(s) from Imaging Studies Chest X-Ray 09/24/22 13:42 IMPRESSION: Increased linear markings at the left lung base suggestive of mild degree of linear atelectasis. Electronically Signed: Edmar Frausto MD at 14:16 EDT , Abdomen/Pelvis CT 09/24/22 14:36 IMPRESSION: Mild degree of bibasilar atelectasis. Fatty infiltration of the liver. 2.7 cm x 1.6 cm right ovarian cyst. Electronically Signed: Edmar Frausto MD at 15:39 EDT , Rhythm Strip Rhythm Strip: Sinus Rhythm Rate: 85 Ectopy: None EKG Initial EKG: Attestation: I personally reviewed and interpreted this EKG as follows: Interpretation: Sinus Rhythm and No Acute Injury Pattern Comments: No acute signs of pericarditis Discharge Plan Triage Chief Complaint: Abd Pain ED Provider: Myron Choe Dx/Rx/DC Orders Clinical Impression: Pleurisy Instructions: ED Pleurisy Prescriptions: New naproxen 500 mg tablet 500 mg PO BID PRN Qty: 14 0RF No Action PNV-DHA 27 mg iron-1 mg -300 mg capsule 1 cap PO DAILY flaxseed oil [[place]-3 Flaxseed Oil] 1,000 mg capsule 1,000 mg PO DAILY Rx Instructions: administer with a meal ascorbic acid (vitamin C) 500 mg capsule 500 mg PO DAILY cholecalciferol (vitamin D3) 25 mcg (1,000 unit) capsule 25 mcg PO DAILY sertraline [Zoloft] 100 mg tablet 100 mg PO QDAY Qty: 30 12RF hydroxyzine pamoate [Vistaril] 25 mg capsule 25 mg PO BID PRN (Reason: anxiety) Qty: 30 0RF calcium carbonate 500 MG tablet 500 mg PO DAILY Primary Care Provider: Care Physician,No Primary Referrals: Yi Kumari MD [Med Staff - Frame Repairer] - 1 Week Disposition Disposition: Home, Self Care
--- NOTE | 2022-09-24 13:57 | NURSING ---
NO OLD EKGS
[2022-09-24] MEDS: Ketorolac 30 MG/ML Syringe IV (13:58)
[2022-09-24 14:08] LABS: Absolute Lymphocyte Count 2.53 X10^3/uL (0.83-4.51); Absolute Neutrophil Count 5.1 X10^3/uL (2.0-7.7); Basophil# 0.07 X10^3/uL; Basophil% 0.8 % (0-1); Eosinophils% 4.6 % (0-5); Hemoglobin 13.1 g/dL (12.0-15.0); Lymphocyte # 2.53 X10^3/ul (0.83-4.51); Lymphocyte % 28.9 % (19-41); Mean Corp Hgb Conc 32.8 g/dL (32-36); Mean Corpuscular Volume 85.5 fL (81-99); Mean Platelet Vol. 7.8 fl (6.2-12.0); Monocyte# 0.66 X10^3/uL; Monocyte% 7.5 % (0-10); NRBC Flagged by Analyzer 0 % (0-5); Neutrophil # 5.06 X10^3/uL (2.7-7.7); Neutrophil % 57.7 % (47-70); Platelet Count 388 K/mm3 (150-450); RBC Distribution Width CV 12.8 % (11.6-14.6); RBC Distribution Width SD 39.4 fl (35.1-43.9); Red Blood Count 4.68 M/mm3 (4.2-5.4); White Blood Count 8.8 K/mm3 (4.4-11.0)
[2022-09-24 14:17] LABS: D-Dimer Quantitative (DVT/PE) 0.45 FEU/ug/m (0.27-0.49)
--- NOTE | 2022-09-24 14:21 | CM.ED ---
Social Work Note Referral Source: case find Referral Reason: no PCP SW met with patient and introduced herself and role as [facility] Lug Loader. Patient lying on hospital bed and agreeable to speak with SW. SW inquired about patient's insurance and current PCP. Patient verified insurance and reports no current PCP. SW provided patient with a list of local PCPs in network with patient's insurance and accepting new patients. Patient was receptive towards list and voiced no other needs. SW remains available if needs arise. Sabine Roberto MSW, DANIEL
[2022-09-24 14:22] LABS: ALB/GLOB Ratio 0.8 RATIO (0.9-2.4); AST(SGOT) 12 U/L (15-37); Alanine Aminotransfer ALT/SGPT 16 U/L (13-56); Albumin, Serum 3.7 g/dL (3.2-5.0); Alkaline Phosphatase 97 U/L (45-117); Anion Gap 5 (5-15); BUN 13 mg/dL (7-18); BUN/Creat Ratio 15.8 RATIO (10-20); Calcium,Total 9.1 mg/dL (8.5-10.1); Chloride 106 mmol/L (98-107); Creatinine, Serum 0.82 mg/dL (0.55-1.02); EST Glomerular Filtration Rate 84 mL/min (>60); Est Glom Filt Rate - Afr Amer 102 mL/min (>60); Estimated Creatinine Clearance 79.97 ml/min; Globulin 4.5 g/dL (2.2-4.2); Glucose 90 mg/dL (74-106); Lipase 30 U/L (13-75); Potassium 4.1 mmol/L (3.5-5.1); Protein, Total 8.2 g/dL (6.4-8.2); Sodium Level 139 mmol/L (136-145)
--- NOTE | 2022-09-24 14:36 | CT_ITS ---
STUDY: CT ABDOMEN AND PELVIS WITH CONTRAST REASON FOR EXAM: Female, 32 years old. LUQ pleuritic pain w/ Kehr sign RADIATION DOSAGE (If Supplied By Facility): CTDIvol = ( 14.98 ) mGy, DLP = ( 1250.13 ) mGycm TECHNIQUE: Transaxial images were obtained from the dome of the diaphragm to the symphysis pubis without oral contrast. IV 100mL Isovue-300 was administered. Sagittal and coronal images were reconstructed. Individualized dose optimization techniques were used for this CT. COMPARISON: None. FINDINGS: Minimal degree of bibasilar linear atelectasis. The visualized portions of the heart are within normal limits. There is decreased attenuation of the liver consistent with steatosis. Normal gallbladder and extrahepatic biliary system. Normal spleen. Normal pancreas. Normal bilateral adrenal glands. Normal right kidney. Normal left kidney. Normal visualized stomach. Normal small intestine. Normal colon. The appendix is visualized and appears normal. Normal abdominal aorta. Normal inferior vena cava. Normal retroperitoneum. Normal urinary bladder. There is a 2.7 cm by 1.6 cm right ovarian cyst. Normal abdominal wall. Normal osseous structures. CT/Abdomen/Pelvis W IV Cont ONLY IMPRESSION: Mild degree of bibasilar atelectasis. Fatty infiltration of the liver. 2.7 cm x 1.6 cm right ovarian cyst. Electronically Signed: Edmar Frausto MD at 15:39 EDT ,
== END 2022-09-24 17:21 | disposition home or self-care (01) ==
PROVIDERS: Emergency Provider Emergency Medicine; Visit Provider Emergency Medicine
DX: R09.1 Pleurisy (principal); Z87.891 Personal history of nicotine dependence; F41.9 Anxiety disorder, unspecified; Z79.899 Other long term (current) drug therapy
CPT/HCPCS: 71046; 74177; 80053; 83690; 85025; 85379; 93005; 96361; 96374; 99283; J7040; Q9967; A4216

== ENCOUNTER → 2022-10-13 | Outpatient (CLI) | payer OTHER, SELFPAY ==
--- NOTE | 2022-10-13 09:15 | US_ITS ---
STUDY: ULTRASOUND TRANSVAGINAL CLINICAL: Female, 32 years old. pelvic pain and ovarian cyst TECHNIQUE: Transvaginal COMPARISON: None. FINDINGS: Normal uterine size measuring 7.6 x 5.9 x 4.9 cm in maximal craniocaudal dimension. There are no myometrial masses. The uterus is retroflexed. Normal endometrial thickness measuring 12 mm. There are no endometrial masses, and there is no fluid in the endometrial cavity. Normal uterine cervix. Normal right ovary, measuring 4.3 x 2.2 x 2.5 cm. 2 cm exophytic follicle of the right ovary. Another 1.8 cm follicle in the right ovary.. Normal left ovary, measuring 3.0 x 2.5 x 1.9 cm. There are multiple follicles without a dominant cyst. There is no free fluid in the pelvis. Polycystic ovary disease: Yes. US/Transvaginal Non- IMPRESSION: Suspect polycystic ovaries. Electronically Signed: Marshal Whipple MD at 10:10 EDT ,
== END | disposition home or self-care (01) ==
PROVIDERS: Referring Provider Obstetrics & Gynecology; Visit Provider Obstetrics & Gynecology
DX: N83.209 Unspecified ovarian cyst, unspecified side (principal)
CPT/HCPCS: 76830

== ENCOUNTER → 2022-10-31 | Outpatient (CLI) | payer OTHER, SELFPAY ==
[2022-10-31 16:40] LABS: NATERA MAILED SPECIMEN
== END | disposition home or self-care (01) ==
PROVIDERS: Referring Provider Obstetrics & Gynecology; Visit Provider Obstetrics & Gynecology
DX: Z01.818 Encounter for other preprocedural examination (principal)